=== PATIENT | female | born 1930 | race Caucasian/White ===

== ENCOUNTER 2016-10-03 13:07 | Inpatient (IN) | payer OTHER ==
[2016-10-02 11:07] VITALS: BMI 19.1
[2016-10-03] MEDS ORDERED: HEPARIN NA (PORCINE) 5,000 UNITS/ML 1ML VIAL ONE ×2 (14:52→17:09)
[2016-10-03] MEDS ORDERED: MIDAZOLAM HCL 2 MG/2 ML SINGLE DOSE VIAL ONE ×2 (15:38)
[2016-10-03] MEDS ORDERED: CLINDAMYCIN PHOSPHATE 600 MG/4 ML VIAL ONE ×2 (16:24→16:27)
[2016-10-03] MEDS ORDERED: ceFAZolin SODIUM 1 GM VIAL ONE (16:25)
[2016-10-03] MEDS ORDERED: CLINDAMYCIN 600 MG PREMIX BAG IVPB ONE (16:28)
[2016-10-03] MEDS ORDERED: LIDOCAINE HCL 1%, 10 MG/ML (20ML VIAL) IJ ONE (16:49)
[2016-10-03] MEDS ORDERED: LIDOCAINE HCL 1%, 10 MG/ML (20ML VIAL) ONE (16:52)
[2016-10-03] MEDS ORDERED: PROPOFOL 20 ML ONE ×2 (17:22→17:43)
[2016-10-03] MEDS ORDERED: PROTAMINE SULFATE 50 MG/5 ML VIAL ONE (18:33)
[2016-10-03] MEDS ORDERED: SODIUM CHLORIDE 0.9% P/F 10 ML VIAL IJ ONE (18:35)
[2016-10-03] MEDS ORDERED: ONDANSETRON 4 MG/2 ML VIAL IVPUSH PRN (18:56)
[2016-10-03] MEDS ORDERED: ALPRAZolam 0.25 MG TABLET PO PRN (18:57)
[2016-10-03] MEDS ORDERED: CLINDAMYCIN IVPB 300 MG in DEXTROSE 5%-WATER - 48 ML IVPB ONE (19:03)
--- NOTE | 2016-10-03 19:03 | OP ---
Operative Note - Note: Operative Date: 10/03/16 Pre-Operative Diagnosis: Abdominal aortic aneurysm Operation: Endovascular repair abdominal aortic aneurysm, percutaneous approach. Bilateral iliac angioplasty Findings: Infrarenal AAA with proximal neck angulation. Stenoses of both common iliac arteries. Implants: Endologic stent graft with proximal cuff 28 mm Post-Operative Diagnosis: Same as Pre-op Surgeon: Huan Loredo Diesel Scoop Operator: Best Shaver Anesthesiologist/[employer]: Santiago Guajardo Anesthesia: Fractional Estimated Blood Loss (mls): 50
--- NOTE | 2016-10-03 19:09 | OP ---
Operative Note - Note: Operative Date: 10/03/16 Pre-Operative Diagnosis: Infrarenal abdominal aortic aneurysm Operation: Percutaneous EVAR Implants: Endofix AFX Post-Operative Diagnosis: Same as Pre-op Surgeon: Huan Loredo Asset Analyst: Best Shaver Anesthesiologist/QUALITY SUPERVISOR: Santiago Guajardo Anesthesia: MAC Estimated Blood Loss (mls): 50 Drains, Volume Out (mls): 150 (clear urine) Fluid Volume Replaced (mls): 1,000 Operative Report Dictated: Yes
--- NOTE | 2016-10-03 19:12 | SURG ---
Surgery Prosthetic Aides Teacher Note Prosthetic Aides Teacher: Best Shaver PA-C Date of Service: 10/03/16 Diagnosis: Infrarenal abdominal aortic aneurysm Procedure: Endovascular repair abdominal aortic aneurysm, percutaneous approach. Bilateral iliac angioplasty I was present for the entirety of the operative procedure. For further detail, please refer to operative report. Visit type - Case Type Case Type: Scheduled Admission - New patient This patient is new to me today: Yes Date on this admission: 10/03/16
[2016-10-03] MEDS ORDERED: ACETAMINOPHEN 325 MG TABLET (FP) PO PRN ×2 (19:52→19:59)
[2016-10-03] MEDS ORDERED: ONDANSETRON 4 MG/2 ML VIAL ONE (19:55)
--- NOTE | 2016-10-03 20:12 | PN ---
Progress Note (short form) - Note Progress Note: Patient seen and examined. Chart reviewed. 86 year old female post-op endovascular AAA repair. Seen in recovery room. Alert, responsive and appropriate. Some local post-operative pain as well as recurrence of left sided low back discomfort Nausea noted as well. Will order acetaminophen as needed for pain due to h/o codeine intolerance. No new chest discomfort, palpitations , PARISI or angina. Case discussed with nursing staff and Dr Loredo. Will be transferred to ICU for further observation and therapy. 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
[2016-10-03] MEDS: LACTATED RINGERS SOLUTION 1,000 ML IV SCH (20:33)
--- NOTE | 2016-10-03 20:53 | CONSULT ---
Consult Consult Specialty:: Pulm/CC - History of Present Illness History of Present Illness: Pt is an 86yr old woman with PMHx of COPD, lung ca (s/p lobectomy), HLD, CAD, hypothyroidism osteoarthritis and AAA. Pt now s/p endovascular repair of AAA with bilateral iliac angioplasty. Pt with endologic stent graft. Upon assessment in the ICU pt is alert, conversive with friends/family at bedside, denies chest pain, sob/headache/v, endorses mild nausea. 152/58, HR 58 sinus on tele, 100% on NC RR 12 afebrile. - History Source History Provided By: Patient, Medical Record - Alcohol/Substance Use Hx Alcohol Use: No - Smoking History Smoking history: Former smoker Have you smoked in the past 12 months: No If you are a former smoker, when did you quit?: 2007 Home Medications - Allergies Allergies/Adverse Reactions: Allergies Allergy/AdvReac Type Severity Reaction Status Date / Time codeine Allergy Severe Vomiting Verified 10/03/16 13:57 Penicillins Allergy Severe Vomiting Verified 10/03/16 13:57 Quinolones Allergy Severe Vomiting Verified 10/03/16 13:57 - Home Medications Home Medications: Ambulatory Orders Alprazolam [Xanax] 0.25 mg PO Q6H PRN 10/02/16 Atorvastatin Ca [Lipitor] 10 mg PO DAILY 10/02/16 Cholecalciferol (Vitamin D3) [Vitamin D3] 1,000 unit PO DAILY 10/02/16 Cranberry Fruit Extract [Cranberry] 125 mg PO DAILY 10/02/16 Cyanocobalamin (Vitamin B-12) [Vitamin B12] 1,000 mcg PO DAILY 10/02/16 Levothyroxine Sodium [Synthroid] 75 mcg PO DAILY 10/02/16 [place]-3/Dha/Epa/Fish Oil [Fish Oil 1,000 mg Softgel] 1,000 mg PO DAILY 10/02/16 Review of Systems - Review of Systems Constitutional: reports: No Symptoms Eyes: reports: No Symptoms HENT: reports: No Symptoms Cardiovascular: denies: Chest Pain, Shortness of Breath Respiratory: denies: SOB Gastrointestinal: denies: Constipation, Diarrhea, Nausea, Vomiting Genitourinary: denies: Dysuria Physical Exam Vital Signs: Vital Signs Period Temp Pulse Resp BP Sys/Weber Pulse Ox Last 24 Hr 97.3 F-98.6 F 64-78 06-30 14-152/55-90 96-100 Intake & Output 09/30/16 10/01/16 10/02/16 10/03/16 23:59 23:59 23:59 23:59 Intake Total 1300 Output Total 120 Balance 1180 Weight 108 lb Constitutional: Yes: Well Nourished, No Distress, Calm Eyes: Yes: WNL HENT: Yes: WNL Neck: Yes: WNL Cardiovascular: Yes: S1, S2, Other (sinus on tele, upper 50s-low 60s) Respiratory: Yes: On Nasal O2, Other (no adventitious breath sounds appreciated) . No: Rhonchi, SOB, Tachypnea, Wheezes Gastrointestinal: Yes: Normal Bowel Sounds, Tenderness (slight around incision site) ...Rectal Exam: Yes: Deferred Renal/: Yes: Rubi Present (yellow output) Musculoskeletal: Yes: WNL Extremities: Yes: WNL Edema: No Peripheral Pulses WNL: Yes (+2 bilateral pedal pulses) Integumentary: Yes: WNL Wound/Incision: Yes: Dressing Dry and Intact, Reddened (slight, bilateral) Neurological: Yes: WNL Psychiatric: Yes: WNL Assessment/Plan Pt is an 86yr old woman with PMHx of COPD, lung ca (s/p lobectomy), HLD, CAD, hypothyroidism osteoarthritis and AAA. Pt now s/p endovascular repair of AAA with bilateral iliac angioplasty. Pt with endologic stent graft. In the ICU for management of recovery. Pulm: -O2 prn for sat >94% -Nebulizers prn -Incentive spirometer ID: -Cultures -Continue Clindamycin per surgery Surgery: -Dr Loredo following -IVF, surgical care per surgical team Cardiac -f/u enzymes -statin Neuro -Pain management -Continue home Xanax prn Endo -Continue home synthroid Renal -IVF per surgery -Replete electrolytes prn Prophylactic -DVT -Zofran prn
[2016-10-03] MEDS ORDERED: ALBUTEROL SO4 0.083% IH SOL 2.5 MG/3 ML VIAL.NEB. NEB PRN (20:56)
[2016-10-03] MEDS ORDERED: HEPARIN NA (PORCINE) 5,000 UNITS/ML 1ML VIAL SQ SCH (22:00)
[2016-10-03] MEDS ORDERED: ATORVASTATIN CA 10 MG TABLET (FP) PO SCH (22:00)
[2016-10-04] MEDS ORDERED: CLINDAMYCIN IVPB 300 MG in DEXTROSE 5%-WATER - 48 ML IVPB ONE (00:30)
[2016-10-04] MEDS: HEPARIN NA (PORCINE) 5,000 UNITS/ML 1ML VIAL SQ SCH ×3 (06:20→21:14)
[2016-10-04 06:53] LABS: BASOPHIL 0.5 % (0-2.0); MCH 30.7 pg (25.7-33.7); MCHC 34.2 g/dl (32.0-36.0); MEAN CELL VOLUME 89.8 fl (80-96); MEAN PLT VOLUME 7.8 fl (7.5-11.1); NEUTROPHILS 65.2 % (42.8-82.8); PLATELET COUNT 192 K/MM3 (134-434); RDW 13.4 % (11.6-15.6)
[2016-10-04] MEDS ORDERED: LEVOTHYROXINE NA 75 MCG TABLET (FP) PO SCH (07:00)
[2016-10-04 07:17] LABS: INR 1.04 (0.82-1.09); PROTHROMBIN TIME (PATIENT) 11.4 SEC (9.98-11.88)
[2016-10-04 07:19] LABS: ACTIVATED PTT 28.4 SECONDS (26.9-34.4)
[2016-10-04 07:33] LABS: ALBUMIN 2.8 g/dl (3.4-5.0); BILIRUBIN,TOTAL 0.8 mg/dL (0.2-1.0); CALCIUM 8.6 mg/dL (8.5-10.1); CREATININE 1.1 mg/dL (0.55-1.02); TOT PROT 5.6 g/dl (6.4-8.2)
[2016-10-04 07:40] LABS: TROPONIN I < 0.02 ng/ml (0.00-0.05)
--- NOTE | 2016-10-04 08:53 | PN ---
Progress Note (short form) - Note Progress Note: Patient seen and examined. Chart reviewed. 86 year old female post-op endovascular AAA repair. Seen this AM in ICU, sitting up in bed, alert, responsive and appropriate. No new post-operative pain and no mention of left sided low back discomfort. Nausea resolved. No new chest discomfort, palpitations, PARISI or angina. Case discussed with nursing staff and Dr Loredo. Selected Entries 10/04/16 10/04/16 07:54 08:00 Temperature 97.1 F L Pulse Rate 62 Respiratory 22 Rate Blood Pressure 126/52 Weight 106 lb 8 oz Laboratory Tests 10/04/16 10/04/16 10/04/16 05:15 05:15 05:15 WBC 6.0 Hgb 10.7 Hct 31.4 L Plt Count 192 INR 1.04 PTT (Actin FS) 28.4 Sodium 142 Potassium 4.3 Chloride 103 Carbon Dioxide 26 BUN 18 Creatinine 1.1 H Random Glucose 60 L Calcium 8.6 Phosphorus 4.0 Magnesium 2.0 Total Bilirubin 0.8 AST 23 ALT 19 Alkaline Phosphatase 76 Creatine Kinase Troponin I Total Protein 5.6 L Albumin 2.8 L 10/04/16 05:15 WBC Hgb Hct Plt Count INR PTT (Actin FS) Sodium Potassium Chloride Carbon Dioxide BUN Creatinine Random Glucose Calcium Phosphorus Magnesium Total Bilirubin AST ALT Alkaline Phosphatase Creatine Kinase 73 Troponin I < 0.02 Total Protein Albumin Chest Clear Cor RRR Abd Soft Incision sites bandaged, appear clean and dry Ext No edema SCDs and stockings is place Toes warm. 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
--- NOTE | 2016-10-04 09:09 | PN ---
Progress Note (short form) - Note Progress Note: POD 1 No c/o Groins clean and dry Feet warm, palp DP Stable course OOB To floor
[2016-10-04] MEDS: LACTATED RINGERS SOLUTION 1,000 ML IV SCH (09:48)
[2016-10-04] MEDS ORDERED: CYANOCOBALAMIN 1,000 MCG TABLET (FP) PO SCH (10:00)
[2016-10-04] MEDS ORDERED: CHOLECALCIFEROL (VITAMIN D3) 1,000 UNIT TABLET (FP) PO SCH (10:00)
[2016-10-04] MEDS ORDERED: ATORVASTATIN CA 10 MG TABLET (FP) PO SCH (10:00)
--- NOTE | 2016-10-04 11:23 | PN ---
Teaching Attending Note Name of Resident: Rashad Carlton ATTENDING PHYSICIAN STATEMENT I saw and evaluated the patient. I reviewed the resident's note and discussed the case with the resident. I agree with the resident's findings and plan as documented. SUBJECTIVE: Patient seen and examined in the ICU. Awake and alert. Minimal discomfort in the groin. No CP or SOB. Intake & Output 10/01/16 10/02/16 10/03/16 10/04/16 23:59 23:59 23:59 23:59 Intake Total 1300 850 Output Total 220 380 Balance 1080 470 Weight 108 lb 106 lb 8 oz Last Vital Signs Temp Pulse Resp BP Pulse Ox 97.2 F L 65 12 119/56 99 10/04/16 10:00 10/04/16 10:00 10/04/16 10:00 10/04/16 10:00 10/04/16 08:00 Active Medications Acetaminophen (Tylenol -) 650 mg PO Q4H PRN PRN Reason: PAIN Albuterol Sulfate (Ventolin 0.083% Nebulizer Soln -) 1 amp NEB Q4H PRN PRN Reason: SHORT OF BREATH/WHEEZING Alprazolam (Xanax -) 0.25 mg PO Q6H PRN PRN Reason: ANXIETY Stop: 10/04/16 18:56 Atorvastatin Calcium (Lipitor -) 10 mg PO DAILY [facility] Last Admin: 10/04/16 09:46 Dose: Not Given Cholecalciferol (Vitamin D3 -) 1,000 unit PO DAILY [facility] Last Admin: 10/04/16 09:46 Dose: 1,000 unit Cyanocobalamin (Vitamin B12 -) 1,000 mcg PO DAILY [facility] Last Admin: 10/04/16 09:46 Dose: 1,000 mcg Heparin Sodium (Porcine) (Heparin -) 5,000 unit SQ TID [facility] Last Admin: 10/04/16 06:20 Dose: 5,000 unit Lactated Ringer's (Lactated Ringers Solution) 1,000 mls @ 75 mls/hr IV ASDIR [facility] Last Admin: 10/04/16 09:48 Dose: 75 mls/hr Levothyroxine Sodium (Synthroid -) 75 mcg PO DAILY@0700 [facility] Last Admin: 10/04/16 06:20 Dose: 75 mcg Constitutional: Yes: Awake and alert, No Distress Eyes: Yes: WNL HENT: Yes: WNL Neck: Yes: WNL Cardiovascular: Yes: S1, S2 Respiratory: Yes: On Nasal O2, Clear Gastrointestinal: Yes: Normal Bowel Sounds ...Rectal Exam: Yes: Deferred Renal/: Yes: Rubi Present Musculoskeletal: Yes: WNL Extremities: Yes: WNL Edema: No Peripheral Pulses WNL: Yes (+2 bilateral pedal pulses) Integumentary: Yes: WNL Wound/Incision: Yes: Dressing Dry and Intact, Reddened (slight, bilateral) Neurological: Yes: WNL Psychiatric: Yes: WNL Assessment/Plan S/P Endovascular repair of AAA with bilateral iliac angioplasty COPD Lung CA (s/p lobectomy) HPL CAD Hypothyroidism Osteoarthritis PLAN: Pain control Incentive Spirometry O2 as needed BD TX PRN VTE prophylaxis PO as tolerated OOB to chair Floor Dr Armendariz
--- NOTE | 2016-10-04 11:46 | PN ---
Progress Note, Physician History of Present Illness: s/p endovascular repair of abdominal aortic aneurysm Doing well no complaints - Current Medication List Current Medications: Active Medications Acetaminophen (Tylenol -) 650 mg PO Q4H PRN PRN Reason: PAIN Albuterol Sulfate (Ventolin 0.083% Nebulizer Soln -) 1 amp NEB Q4H PRN PRN Reason: SHORT OF BREATH/WHEEZING Alprazolam (Xanax -) 0.25 mg PO Q6H PRN PRN Reason: ANXIETY Stop: 10/04/16 18:56 Atorvastatin Calcium (Lipitor -) 10 mg PO DAILY [facility] Last Admin: 10/04/16 09:46 Dose: Not Given Cholecalciferol (Vitamin D3 -) 1,000 unit PO DAILY [facility] Last Admin: 10/04/16 09:46 Dose: 1,000 unit Cyanocobalamin (Vitamin B12 -) 1,000 mcg PO DAILY [facility] Last Admin: 10/04/16 09:46 Dose: 1,000 mcg Heparin Sodium (Porcine) (Heparin -) 5,000 unit SQ TID [facility] Last Admin: 10/04/16 06:20 Dose: 5,000 unit Lactated Ringer's (Lactated Ringers Solution) 1,000 mls @ 75 mls/hr IV ASDIR [facility] Last Admin: 10/04/16 09:48 Dose: 75 mls/hr Levothyroxine Sodium (Synthroid -) 75 mcg PO DAILY@0700 [facility] Last Admin: 10/04/16 06:20 Dose: 75 mcg - Objective Vital Signs: Vital Signs Temperature 97.2 F L 10/04/16 10:00 Pulse Rate 65 10/04/16 10:00 Respiratory Rate 12 10/04/16 10:00 Blood Pressure 119/56 10/04/16 10:00 O2 Sat by Pulse Oximetry (%) 99 10/04/16 08:00 Constitutional: Yes: Well Nourished, No Distress Eyes: Yes: EOM Intact HENT: Yes: Atraumatic Neck: Yes: Supple Cardiovascular: Yes: Regular Rate and Rhythm Respiratory: Yes: CTA Bilaterally Gastrointestinal: Yes: Soft. No: Tenderness Extremities: Yes: Other (bilateral groin incisions clean dry and intact) ...Motor Strength: WNL Labs: CBC, BMP 10/04/16 05:15 10/04/16 05:15 INR, PTT INR 1.04 (0.82-1.09) 10/04/16 05:15 Assessment/Plan Pt is an 86yr old woman with PMHx of COPD, lung ca (s/p lobectomy), HLD, CAD, hypothyroidism osteoarthritis and AAA. Pt now s/p endovascular repair of AAA with bilateral iliac angioplasty. Pt with endologic stent graft. In the ICU for management of recovery. COPD/history of Lung Ca O2 prn for sat >94% Nebulizers prn Incentive spirometer Abdominal aortic aneurysm s/p EVAAR Stable surgery following transfer to floor D/C scanlon Hyperlipidemia continue statin neuro: pain management xanax PRN hypothyroidism Continue home synthroid Prophylactic DVT Zofran prn out of bed CLD advance as tolerated Transfer to floor
--- NOTE | 2016-10-04 14:46 | PN ---
Progress Note (short form) - Note Progress Note: Anesthesia postop note 86 y/o F s/p MAC anesthesia for endovascular AAA repair POD#1, in ICU, feeling good, aaox3, vss, no complaints. No anesthesia complications.
[2016-10-04] MEDS ORDERED: ALBUTEROL SO4 0.083% IH SOL 2.5 MG/3 ML VIAL.NEB. NEB PRN (16:21)
[2016-10-04] MEDS ORDERED: ALPRAZolam 0.25 MG TABLET PO PRN (16:21)
[2016-10-04] MEDS ORDERED: ACETAMINOPHEN 325 MG TABLET (FP) PO PRN (16:21)
[2016-10-04] MEDS ORDERED: LACTATED RINGERS SOLUTION 1,000 ML IV SCH (16:21)
[2016-10-05 05:26] LABS: MCH 30.7 pg (25.7-33.7); MEAN CELL VOLUME 90.5 fl (80-96); MEAN PLT VOLUME 7.9 fl (7.5-11.1); PLATELET COUNT 192 K/MM3 (134-434); RDW 13.2 % (11.6-15.6); WHITE BLOOD COUNT 7.2 K/mm3 (4.0-10.0)
[2016-10-05 06:01] LABS: CALCIUM 8.4 mg/dL (8.5-10.1); CREATININE 1.3 mg/dL (0.55-1.02)
[2016-10-05] MEDS: HEPARIN NA (PORCINE) 5,000 UNITS/ML 1ML VIAL SQ SCH (06:27)
[2016-10-05] MEDS ORDERED: ATORVASTATIN CA 10 MG TABLET (FP) PO SCH (07:00)
[2016-10-05] MEDS ORDERED: LEVOTHYROXINE NA 75 MCG TABLET (FP) PO SCH (07:00)
[2016-10-05 08:07] VITALS: PULSE 73
--- NOTE | 2016-10-05 09:02 | PN ---
Progress Note (short form) - Note Progress Note: POD 2 C/o chronic back pain VSS Abd soft groins clean and dry, no swelling Stable Home today
[2016-10-05] MEDS ORDERED: PT OWN MED DRAWER 7, Y5N ONE (09:33)
--- NOTE | 2016-10-05 09:48 | DS ---
Physical Examination Vital Signs: Vital Signs Temperature 97.1 F L 10/05/16 08:00 Pulse Rate 73 10/05/16 08:00 Respiratory Rate 22 10/05/16 08:00 Blood Pressure 141/58 10/05/16 08:00 O2 Sat by Pulse Oximetry (%) 94 L 10/05/16 08:00 Constitutional: Yes: Well Nourished Eyes: Yes: Conjunctiva Clear Cardiovascular: Yes: Regular Rate and Rhythm Respiratory: Yes: CTA Bilaterally Gastrointestinal: Yes: Normal Bowel Sounds, Soft Edema: No Wound/Incision: Yes: Clean/Dry Labs: CBC, BMP 10/05/16 05:00 10/05/16 05:00 Discharge Summary Reason For Visit: ABDOMINAL AORTIC ANEURYSM See daily notes and problem list Procedures: Principal: Endovascular AAA repair as per Dr Loredo Hospital Course: See daily notes Condition: Good - Instructions Diet, Activity, Other Instructions: Dr Loredo's Discharge Instructions Dear ROBIN JAY, Post Operative Instructions Physical activity Resume your normal everyday activity as tolerated no heavy lifting or exercise until seen by your surgeon. You may walk unlimited elkin of and climb stairs. You may resume driving the car when you feel safe and comfortable behind the wheel. Diet There are no dietary restrictions. Eat healthy, high-fiber foods. Drink 6 to 8 glasses of liquid each day. This will assist in keeping your bowels are regular. Pain management You may take Tylenol or acetaminophen or Ibuprofen (for example, Motrin, Advil etc.) Any pain prescription medication ordered should be taken as prescribed for moderate to severe pain. Call Dr. Loredo for any of the following: Severe pain not relieved by medication Fever of 101 or higher Excessive bleeding or drainage on dressing Inability to urinate Call the office for an appointment in seven days. Follow up with Dr Ashley Disposition: HOME - Home Medications Comprehensive Discharge Medication List: Ambulatory Orders Alprazolam [Xanax] 0.25 mg PO Q6H PRN 10/02/16 Atorvastatin Ca [Lipitor] 10 mg PO DAILY 10/02/16 Cholecalciferol (Vitamin D3) [Vitamin D3] 1,000 unit PO DAILY 10/02/16 Cranberry Fruit Extract [Cranberry] 125 mg PO DAILY 10/02/16 Cyanocobalamin (Vitamin B-12) [Vitamin B12] 1,000 mcg PO DAILY 10/02/16 [place]-3/Dha/Epa/Fish Oil [Fish Oil 1,000 mg Softgel] 1,000 mg PO DAILY 10/02/16 Acetaminophen [Tylenol .Regular Strength -] 650 mg PO Q4H PRN #0 tablet Levothyroxine [Synthroid -] 75 mcg PO DAILY@0700 tablet 10/05/16
[2016-10-05] MEDS ORDERED: CYANOCOBALAMIN 1,000 MCG TABLET (FP) PO SCH (10:00)
[2016-10-05] MEDS ORDERED: CHOLECALCIFEROL (VITAMIN D3) 1,000 UNIT TABLET (FP) PO SCH (10:00)
[2016-10-05 10:16] VITALS: BP 135/58; TEMP 97
--- NOTE | 2016-10-05 10:38 | PN ---
Teaching Attending Note Name of Resident: Rashad Carlton ATTENDING PHYSICIAN STATEMENT I saw and evaluated the patient. I reviewed the resident's note and discussed the case with the resident. I agree with the resident's findings and plan as documented. SUBJECTIVE: Patient seen and examined in the ICU. Awake and alert. Minimal discomfort in the groin. No CP or SOB. Intake & Output 10/02/16 10/03/16 10/04/16 10/05/16 23:59 23:59 23:59 23:59 Intake Total 1300 2315 670 Output Total 220 1380 550 Balance 1080 935 120 Weight 108 lb 106 lb 8 oz 106 lb 9.6 oz Last Vital Signs Temp Pulse Resp BP Pulse Ox 97.0 F L 73 22 135/58 94 L 10/05/16 10:00 10/05/16 10:00 10/05/16 10:00 10/05/16 10:00 10/05/16 08:00 Active Medications Acetaminophen (Tylenol -) 650 mg PO Q4H PRN PRN Reason: PAIN Albuterol Sulfate (Ventolin 0.083% Nebulizer Soln -) 1 amp NEB Q4H PRN PRN Reason: SHORT OF BREATH/WHEEZING Alprazolam (Xanax -) 0.25 mg PO Q6H PRN PRN Reason: ANXIETY Atorvastatin Calcium (Lipitor -) 10 mg PO DAILY@0700 [facility] Last Admin: 10/05/16 06:38 Dose: 10 mg Cholecalciferol (Vitamin D3 -) 1,000 unit PO DAILY [facility] Last Admin: 10/05/16 09:34 Dose: 1,000 unit Cyanocobalamin (Vitamin B12 -) 1,000 mcg PO DAILY [facility] Last Admin: 10/05/16 09:34 Dose: 1,000 mcg Heparin Sodium (Porcine) (Heparin -) 5,000 unit SQ TID [facility] Last Admin: 10/05/16 06:27 Dose: 5,000 unit Levothyroxine Sodium (Synthroid -) 75 mcg PO DAILY@0700 [facility] Last Admin: 10/05/16 06:29 Dose: 75 mcg Constitutional: Yes: Awake and alert, No Distress Eyes: Yes: WNL HENT: Yes: WNL Neck: Yes: WNL Cardiovascular: Yes: S1, S2 Respiratory: Yes: On Nasal O2, Clear Gastrointestinal: Yes: Normal Bowel Sounds ...Rectal Exam: Yes: Deferred Renal/: Yes: Rubi Present Musculoskeletal: Yes: WNL Extremities: Yes: WNL Edema: No Peripheral Pulses WNL: Yes (+2 bilateral pedal pulses) Integumentary: Yes: WNL Wound/Incision: Yes: Dressing Dry and Intact Neurological: Yes: WNL Psychiatric: Yes: WNL Laboratory Results - last 24 hr 10/05/16 10/05/16 05:00 05:00 WBC 7.2 RBC 3.33 L Hgb 10.2 L Hct 30.1 L MCV 90.5 MCHC 34.0 RDW 13.2 Plt Count 192 MPV 7.9 Sodium 142 Potassium 4.2 Chloride 105 Carbon Dioxide 30 Anion Gap 7 L BUN 20 H Creatinine 1.3 H Random Glucose 109 H D Calcium 8.4 L Assessment/Plan S/P Endovascular repair of AAA with bilateral iliac angioplasty COPD Lung CA (s/p lobectomy) HPL CAD Hypothyroidism Osteoarthritis PLAN: Noted 0.2 increase in creatinine. Otherwise stable. Pain control Incentive Spirometry O2 as needed BD TX PRN VTE prophylaxis PO as tolerated OOB to chair D/C planning Dr Armendariz
--- NOTE | 2016-10-05 11:00 | PN ---
Progress Note, Physician History of Present Illness: patient seen and examined at bedside in the ICU this morning s/p endovascular repair of abdominal aortic aneurysm POD 2 Doing well no complaints ready for discharge - Objective Vital Signs: Vital Signs Temperature 97.0 F L 10/05/16 10:00 Pulse Rate 73 10/05/16 10:00 Respiratory Rate 22 10/05/16 10:00 Blood Pressure 135/58 10/05/16 10:00 O2 Sat by Pulse Oximetry (%) 94 L 10/05/16 08:00 Constitutional: Yes: Well Nourished, No Distress Eyes: Yes: EOM Intact HENT: Yes: Atraumatic Neck: Yes: Supple Cardiovascular: Yes: Regular Rate and Rhythm Respiratory: Yes: CTA Bilaterally Gastrointestinal: Yes: Soft. No: Tenderness Extremities: Yes: Other (bilateral groin incisions clean dry and intact) ...Motor Strength: WNL Labs: CBC, BMP 10/05/16 05:00 10/05/16 05:00 INR, PTT INR 1.04 (0.82-1.09) 10/04/16 05:15 Assessment/Plan Pt is an 86yr old woman with PMHx of COPD, lung ca (s/p lobectomy), HLD, CAD, hypothyroidism osteoarthritis and AAA. Pt now s/p endovascular repair of AAA with bilateral iliac angioplasty. Pt with endologic stent graft. In the ICU for management of recovery. COPD/history of Lung Ca O2 prn for sat >94% Nebulizers prn Incentive spirometer Abdominal aortic aneurysm s/p EVAAR Stable surgery following Hyperlipidemia continue statin neuro: pain management xanax PRN hypothyroidism Continue home synthroid Prophylactic DVT Zofran prn out of bed regular diet Discharge to home patient advised to follow up with PMD or vascular surgery for labs in 1 week to assess renal function. advised to stay hydrated
--- NOTE | 2016-10-05 14:09 | OP ---
DATE OF OPERATION: 10/03/2016 SURGEON: Huan Loredo MD LMFT: ROXANNE Bravo PROCEDURE: Endovascular repair of abdominal aortic aneurysm with paracutaneous approach, bilateral iliac angioplasty. PREOPERATIVE DIAGNOSIS: Infrarenal abdominal aortic aneurysm, stenosis of both common iliac arteries. POSTOPERATIVE DIAGNOSIS: Infrarenal abdominal aortic aneurysm, stenosis of both common iliac arteries. ANESTHESIA: Fractional. ANESTHESIOLOGIST: Bennett OPERATIVE FINDINGS: There was an infrarenal abdominal aortic aneurysm with proximal neck angulation. The common iliac arteries were narrowed but patent. OPERATIVE PROCEDURE: Following routine patient identification, intravenous sedation was established. The abdomen, both groins, and thighs were prepped with ChloraPrep. Using real time duplex imaging, the right common femoral artery was identified. There was calcified plaque along the mccrary of the artery. A site for cannulation proximal to the bifurcation was chosen. Then 1% Xylocaine was infiltrated in the skin overlying the artery and then the artery was cannulated with a micropuncture needle using ultrasound guidance. A micropuncture wire was advanced proximally, and the needle was exchanged for a 5-Bangladeshi catheter. A Gramco wire was advanced proximally under fluoroscopic guidance into the abdominal aorta. A 6-Bangladeshi sheath was then exchanged over the wire into the femoral artery. Two Proglide Perclose devices were then placed at 2 o'clock and 10 o'clock in the artery but not tightened. They were secured with clamps to the drapes. An 8-Bangladeshi sheath was placed into the artery. A Berenstein catheter was then advanced over the wire into the abdominal aorta and an angle tip Glidewire used to advance into the suprarenal aorta. The catheter was advanced up over the wire, and the wire was exchanged for a Lunderquist whose tip was positioned at the aortic arch. The patient was systemically heparinized. The left femoral artery was cannulated under ultrasound guidance in a similar fashion. A 7-Bangladeshi sheath was placed. An angled wire was advanced proximally into the abdominal aorta and then a snare catheter was advanced over the wire and the snare placed to position at the aortic bifurcation. Tract around the wire in the right groin was then dilated to a 14 Bangladeshi and then the introducer for the Endologix graft passed over the wire and advanced into the abdominal aorta without difficulty. The AFX bifurcated stent graft was then prepped and the Contra wire advanced up the sheath. The wire was grabbed with a snare and pulled down through the left femoral sheath while the stent graft main body was advanced proximally into the sheath and then into the abdominal aorta. The graft was then deployed and pulled down on both sides so that the bifurcation would sit over the aortic bifurcation snugly. The left limb was then deployed in the usual fashion. A wire was then passed up the left femoral sheath into the suprarenal aorta. A Marker pigtail catheter was advanced over the wire to perform angiography to brayden the renal arteries. The Moore proximal endograft segment was then passed over the wire to the right sheath, and after magnified imaging of the renal arteries, it was deployed at the level of the renal arteries and into the main body of the stent graft. The iliac arteries were then balloon dilated with 8-mm balloons, and completion angiography revealed accurate placement of the stent graft with flow to both renal arteries and no evidence of endoleak. The left femoral sheath was removed and a Perclose device used to seal the arteriotomy without difficulty. The right femoral sheath was removed and the previously placed Perclose sutures tightened. One of the sutures was dislodged, so only 1 Perclose was used. Pressure was applied, and the patient received some protamine. There was no evidence of abnormal bleeding. Dermabond glue was applied to the skin as dressing, and then patient was taken to the recovery room in stable condition. HUAN LOREDO M.D. [id number]
== END 2016-10-05 10:30 | disposition home or self-care (01) | DRG 269 ==
LOC: JSAMEDAYSX 13:07 → JICU 21:12
PROVIDERS: ADMIT Surgery; ATTEND Surgery
PROC: B40 Imaging, Lower Arteries, Plain Radiography (ICD-10-PCS; 2016-10-03)
PROC: 04V03DZ Restriction of Abdominal Aorta with Intraluminal Device, Percutaneous Approach (ICD-10-PCS; principal; 2016-10-03 14:30)
DX: I71.4 Abdominal aortic aneurysm, without rupture (principal); I70.298 Other atherosclerosis of native arteries of extremities, other extremity; J44.9 Chronic obstructive pulmonary disease, unspecified; E78.5 Hyperlipidemia, unspecified; I25.10 Atherosclerotic heart disease of native coronary artery without angina pectoris; E03.9 Hypothyroidism, unspecified; M54.40 Lumbago with sciatica, unspecified side; M19.90 Unspecified osteoarthritis, unspecified site; Z87.891 Personal history of nicotine dependence; Z85.118 Personal history of other malignant neoplasm of bronchus and lung
CPT/HCPCS: 36415; 76001-TC; 80048; 80053; 82550; 83735; 84100; 84484; 85025; 85027; 85610; 85730; 86850; 86900; 86901; 87040; 87086; 87254; 87804; 94010; 94760; J1644

== ENCOUNTER 2020-03-19 14:22 | Emergency (ER) | payer OTHER ==
[2020-03-19 14:47] VITALS: TEMP 98.1; BMI 16.9
[2020-03-19 15:16] LABS: BASO % 0.9 % (0-2.0); EOS % 3.3 % (0-4.5); HEMATOCRIT 28.5 % (32.4-45.2); HEMOGLOBIN 9.5 GM/dl (10.7-15.3); LYMPH % 23.1 % (8-40); MCHC 33.5 g/dl (32.0-36.0); MEAN CELL VOLUME 74.5 fl (80-96); MEAN PLT VOLUME 6.8 fl (7.5-11.1); MONO % 9.2 % (3.8-10.2); NEUT % 63.5 % (42.8-82.8); PLATELET COUNT 404 K/MM3 (134-434); RBC 3.82 M/mm3 (3.60-5.2); RDW 15.2 % (11.6-15.6); WHITE BLOOD COUNT 8.4 K/mm3 (4.0-10.8)
[2020-03-19 15:24] LABS: ALBUMIN 2.7 g/dl (3.4-5.0); BILIRUBIN,TOTAL 0.5 mg/dl (0.2-1); CALCIUM 9.1 mg/dl (8.5-10); CREATININE 1.6 mg/dl (0.55-1.3); POTASSIUM 3.7 mmol/L (3.5-5.1); TOT PROT 6.5 g/dl (6.4-8.2)
[2020-03-19 15:38] VITALS: BP 140/60; PULSE 68
--- NOTE | 2020-03-19 15:59 | PDOC ---
Documentation entered by Kassidy Gay SCRIBE, acting as scribe for Remy Palafox MD. Remy Palafox MD: This documentation has been prepared by the hannahibeAnne Maria, SCRIBE, under my direction and personally reviewed by me in its entirety. I confirm that the documentation accurately reflects all work, treatment, procedures, and medical decision making performed by me. History of Present Illness - General Chief Complaint: Blood Pressure Problem Stated Complaint: LOW BLOOD PRESSURE History Source: Patient, Family Exam Limitations: No Limitations - History of Present Illness Initial Comments: 03/19/20 14:53 The patient is a 89 year old female with a significant past medical history of COPD, lung ca (s/p lobectomy), HLD, CAD, hypothyroidism osteoarthritis and AAA s/p endovascular with bilateral iliac angioplasty who presents to the emergency department with her daughter at bedside for further evaluation of low blood pressure. As per the patient's daughter, she reports taking her moms blood pressure this morning and states it was 84/50, with acute new onset of shortness of breath. Patients daughter also reports on 03/16/2020, her mom had an episode of lightheadedness. Patient currently presents to the emergency department asymptomatic and voices no complaints. Patient has been compliant with all her medications. Patient denies recent fevers or chills. She denies recent nausea, vomiting, diarrhea or constipation. She denies any chest pain, swelling or pain in her legs. Allergies: Sulfur, Codeine, Penicillins, Quinolones. Social history: Former smoker, quit smoking over 10 years ago. Denies ETOH use, quit over 30 years ago, and recreational drug use. Primary Care Physician: Dr. Ashley. Past History - Medical History Allergies/Adverse Reactions: Allergies Allergy/AdvReac Type Severity Reaction Status Date / Time codeine Allergy Severe Vomiting Verified 10/03/16 13:57 Penicillins Allergy Severe Vomiting Verified 10/03/16 13:57 Quinolones Allergy Severe Vomiting Verified 10/03/16 13:57 Sulfa (Sulfonamide Allergy Severe Verified 03/19/20 14:47 Antibiotics) Home Medications: Ambulatory Orders Alprazolam [Xanax] 0.25 mg PO Q6H PRN 10/02/16 Atorvastatin Ca [Lipitor] 10 mg PO DAILY 10/02/16 Cholecalciferol (Vitamin D3) [Vitamin D3] 1,000 unit PO DAILY 10/02/16 Cranberry Fruit Extract [Cranberry] 125 mg PO DAILY 10/02/16 Cyanocobalamin (Vitamin B-12) [Vitamin B12] 1,000 mcg PO DAILY 10/02/16 [place]-3/Dha/Epa/Fish Oil [Fish Oil 1,000 mg Softgel] 1,000 mg PO DAILY 10/02/16 Acetaminophen [Tylenol .Regular Strength -] 650 mg PO Q4H PRN #0 tablet 10/05/16 Levothyroxine [Synthroid -] 75 mcg PO DAILY@0700 tablet 10/05/16 Metoprolol Succinate 25 mg PO DAILY 03/19/20 Anemia: No Asthma: No Cancer: Yes (hx lung) Cardiac Disorders: No CVA: No CHF: No Dementia: No Diabetes: No GI Disorders: No Disorders: No HTN: No Hypercholesterolemia: No Liver Disease: No Seizures: No Thyroid Disease: No - Surgical History Lung Surgery: Yes (lung sx) - Psycho-Social/Smoking History Smoking History: Former smoker Have you smoked in the past 12 months: No If you are a former smoker, when did you quit?: 2008 Review of Systems - Review of Systems Able to Perform ROS?: Yes Comments:: 03/19/20 14:53 CONSTITUTIONAL: Absent: Fever, Chills, Diaphoresis, Generalized Weakness, Malaise, Loss of Appetite HEENT: Absent: Rhinorrhea, Nasal Congestion, Throat Pain, Throat Swelling, Difficulty Swallowing, Mouth Swelling, Ear Pain, Eye Pain, Visual Changes CARDIOVASCULAR:+low blood pressure. Absent: Chest Pain, Syncope, Palpitations, Irregular Heart Rate, Lightheadedness, Peripheral Edema RESPIRATORY:+shortness of breath Absent: Cough, Orthopnea, Wheezing, Stridor, Hemoptysis GASTROINTESTINAL: Absent: Abdominal pain, Abdominal Distension, Nausea, Vomiting, Diarrhea, Constipation, Melena, Hematochezia GENITOURINARY: Absent: Dysuria, Frequency, Urgency, Hesitancy, Flank Pain, Genital Pain MUSCULOSKELETAL: Absent: Myalgia, Arthralgia, Joint Swelling, Back pain, Neck Pain SKIN: Absent: Rash, Itching, Pallor HEMEATOLOGIC/IMMUNOLOGIC: Absent: Easy Bleeding, Easy Bruising, Lymphadenopathy, Frequent infections ENDOCRINE: Absent: Unexplained Weight Gain, Unexplained Weight Loss, Heat Intolerance, Cold Intolerance NEUROLOGIC: Absent: Headache, Focal Weakness, Paresthesias, Vertigo, Lightheadedness, Unsteady Gait, Seizure, Mental Status Changes, Incontinence PSYCHIATRIC: Absent: Anxiety, Depression *Physical Exam - Physical Exam 03/19/20 15:51 GENERAL: The patient is awake, alert, and fully oriented, in no acute distress. She appears well. She does not have any shortness of breath. She does not have any dizziness currently. HEAD: Normal with no signs of trauma. EYES: Pupils equal, round and reactive to light, extraocular movements intact, sclera anicteric, conjunctiva clear. ENT: Ears normal, nares patent, oropharynx clear without exudates. Moist mucous membranes. NECK: Normal range of motion, supple without lymphadenopathy, JVD, or masses. LUNGS: Breath sounds equal, clear to auscultation bilaterally. No wheezes, and no crackles. HEART: Regular rate and rhythm, normal S1 and S2 without murmur, rub or gallop. ABDOMEN: Soft, nontender, normoactive bowel sounds. No guarding, no rebound. No masses. EXTREMITIES: Normal range of motion, 1+ bilateral pitting ankle edema, symmetrical, chronic as per patient and her granddaughter. No clubbing or cyanosis. No cords, erythema, or tenderness. NEUROLOGICAL: Cranial nerves II through XII grossly intact. Normal speech, normal gait. PSYCH: Normal mood, normal affect. SKIN: Warm, Dry, normal turgor, no rashes or lesions noted. Heart Score/ECG Review - ECG Impressions Comment:: 03/19/20 15:52 Twelve-lead EKG shows normal sinus rhythm at a rate of 71 bpm. The axis is normal. The intervals are normal. There are no abnormal Q waves. There is no abnormal ST elevation or depression. T waves appear unremarkable. Impression: Unremarkable twelve-lead EKG. ED Treatment Course - LABORATORY CBC & Chemistry Diagram: 03/19/20 15:00 03/19/20 15:00 Medical Decision Making - Medical Decision Making 03/19/20 15:53 89-year-old female with history of lung cancer in the distant past, status post right lung resection, former smoker with COPD, presents after an episode of lightheadedness 4 days ago which had resolved. Today she did not have lightheadedness, but her blood pressure on the machine at home was noted to be in the 80s. She did note some shortness of breath today when walking from the car to the house. That resolved. She denies chest pain, cough, sputum, palpitations, fever, chills, vomiting, diarrhea, diaphoresis, and all other symptoms. She states she feels currently normal and well. Physical examination was unremarkable. She has mild bilateral pitting ankle edema which is chronic, better than normal. She is ambulatory with no dyspnea. Vital signs on serial checks were normal including blood pressure in the 140s systolic. Laboratory work-up is notable for microcytic anemia. She also has mild chronic kidney disease. The patient and her granddaughter state that Dr. Diego, recently performed lab work and started her on iron pills which she was unable to tolerate. She also has known chronic kidney disease. Twelve-lead EKG is unremarkable. Chest x-ray PA and lateral shows evidence of prior surgery with clips in the right hemithorax and an aortic endograft in the abdomen. There are no acute findings. Impression: Low reading on the blood pressure machine at home, currently asymptomatic with normal blood pressure. Work-up is notable for chronic anemia and chronic kidney disease. All stable. Patient will follow-up for these findings with Dr. Aneesh Ashley, her primary physician. Call placed to Dr. Ashley to review the labs. Copy of the labs given to the patient to bring to her next appointment. I recommended that the patient and her daughter discussed the possibility of IV iron to treat the iron deficiency anemia, given her inability to tolerate oral iron. They state they will follow-up with Dr. Diego soon and review these options with him. Discharge - Discharge Information Problems reviewed: Yes Clinical Impression/Diagnosis: Anemia Qualifiers: Anemia type: iron deficiency Iron deficiency anemia type: unspecified iron deficiency Qualified Code(s): D50.9 - Iron deficiency anemia, unspecified Chronic kidney disease Qualifiers: Chronic kidney disease stage: unspecified stage Qualified Code(s): N18.9 - Chronic kidney disease, unspecified Condition: Good - Admission No - Follow up/Referral Referrals: Aneesh Ashley MD [Primary Care Provider] - 2 Days - Patient Discharge Instructions Patient Printed Discharge Instructions: How to Monitor Your Blood Pressure at Home Additional Instructions: Today your evaluated for a low blood pressure reading at home and for shortness of breath. Your EKG and chest x-ray were normal. The blood tests revealed mild anemia (low red blood cells) and mild kidney disease. None of these findings are new. You are advised to follow-up with Dr. Aneesh Ashley and to bring a co py of your labs to your appointment. You may want to discuss IV iron therapy with Dr. Ashley. Return to the emergency department for any severe or progressive symptoms. - Post Discharge Activity
--- NOTE | 2020-03-20 11:29 | EKG ---
Test Reason : Blood Pressure : / mmHG Vent. Rate : 071 BPM Atrial Rate : 071 BPM P-R Int : 146 ms QRS Dur : 076 ms QT Int : 418 ms P-R-T Axes : 073 042 062 degrees QTc Int : 454 ms NORMAL SINUS RHYTHM NONSPECIFIC ST ABNORMALITY ABNORMAL ECG WHEN COMPARED WITH ECG OF 04-MAY-2008 10:42, NO SIGNIFICANT CHANGE WAS FOUND Confirmed by JORDAN IVEY MD ([id number]) on 03/20/2020 11:29:24 AM Referred By: Confirmed By:JORDAN IVEY MD
== END 2020-03-19 16:02 | disposition home or self-care (01) ==
LOC: FER 14:22
DX: D50.9 Iron deficiency anemia, unspecified (principal); N18.9 Chronic kidney disease, unspecified
CPT/HCPCS: 36415; 71046-TC-FY; 80053; 84484; 85025; 93005; 99285-25

== ENCOUNTER 2020-06-01 19:53 | Inpatient (IN) | payer OTHER ==
--- NOTE | 2020-06-01 20:06 | PDOC ---
History of Present Illness - General Stated Complaint: ALTERED MENTAL STATUS,FEVER Time Seen by Provider: 06/01/20 20:15 History Source: Patient Exam Limitations: No Limitations - History of Present Illness Initial Comments: 06/01/20 20:26 Patient is an 89 y.o. F PMHx COPD, lung ca s/p lobectomy, HLD, CAD, hypothyroidism, OA and AAA s/p endovascular w/ b/l iliac angiography. Patient present by EMS due to 5 days of lethargy, inability to walk, decreased appetite along with 2 days of fever most recent 101. Patient states she feels weak and is more tired than usual. Patient denies headache, chest pain, SOB, N/V/D, numbness or tingling in the extremities. PCP: Dr. Ashley PMHx: COPD, lung ca s/p lobectomy, HLD, CAD, hypothyroidism, OA PSHx: AAA s/p endovascular w/ b/l iliac angiography Meds: In Chart Allergies: Codeine, penecillin, quinolones, sulfa CXR: Dispo: 06/01/20 21:26 Is this a multiple visit Asthma Patient?: No Timing/Duration: 1 week Severity: moderate Beta Saundra Contraindications(Core Measure): Yes: Not Prescribed Beta Saundra Given by EMS(Core Measure): No Beta Saundra Taken at Home(Core Measure): No Beta Saundra Not Indicated at this Time(Core Measure): Yes Past History - Medical History Allergies/Adverse Reactions: Allergies Allergy/AdvReac Type Severity Reaction Status Date / Time codeine Allergy Severe Vomiting Verified 06/01/20 20:08 Penicillins Allergy Severe Vomiting Verified 06/01/20 20:08 Quinolones Allergy Severe Vomiting Verified 06/01/20 20:08 Sulfa (Sulfonamide Allergy Severe Verified 06/01/20 20:08 Antibiotics) Home Medications: Ambulatory Orders Alprazolam [Xanax] 0.25 mg PO Q6H PRN 10/02/16 Atorvastatin Ca [Lipitor] 10 mg PO DAILY 10/02/16 Cholecalciferol (Vitamin D3) [Vitamin D3] 1,000 unit PO DAILY 10/02/16 Cranberry Fruit Extract [Cranberry] 125 mg PO DAILY 10/02/16 Cyanocobalamin (Vitamin B-12) [Vitamin B12] 1,000 mcg PO DAILY 10/02/16 [place]-3/Dha/Epa/Fish Oil [Fish Oil 1,000 mg Softgel] 1,000 mg PO DAILY 10/02/16 Acetaminophen [Tylenol .Regular Strength -] 650 mg PO Q4H PRN #0 tablet 10/05/16 Levothyroxine [Synthroid -] 75 mcg PO DAILY@0700 tablet 10/05/16 Anemia: No Asthma: No Cancer: Yes (hx lung) Cardiac Disorders: No CVA: No COPD: Yes CHF: No Dementia: No Diabetes: No GI Disorders: No Disorders: No HTN: No Hypercholesterolemia: No Liver Disease: No Seizures: No Thyroid Disease: No - Surgical History Abdominal Surgery: Yes (ENDOVASCULAR AAA REPAIR) Lung Surgery: Yes (lung sx) - Psycho-Social/Smoking History Smoking History: Former smoker Have you smoked in the past 12 months: No If you are a former smoker, when did you quit?: 2007 ED Treatment Course - LABORATORY CBC & Chemistry Diagram: 06/02/20 05:43 06/02/20 05:43 Medical Decision Making - Medical Decision Making 06/01/20 20:31 Patient is an 89 y.o. F PMHx COPD, lung ca s/p lobectomy, HLD, CAD, hypothyroidism, OA and AAA s/p endovascular w/ b/l iliac angiography. Patient present by EMS due to 5 days of lethargy, inability to walk, decreased appetite along with 2 days of fever most recent 101. DDx: Septic (urinary source vs. blood vs. pulmonary), UTI, cachexia, pneumonia Labs: pending CXR: pending Dispo: Signed out to resident Dr. Mcadams. 06/01/20 21:26 06/01/20 21:51 Discharge - Discharge Information Problems reviewed: Yes Clinical Impression/Diagnosis: Colonic mass Anemia Qualifiers: Anemia type: unspecified type Qualified Code(s): D64.9 - Anemia, unspecified Condition: Fair - Follow up/Referral - Patient Discharge Instructions - Post Discharge Activity
[2020-06-01 20:19] VITALS: BMI 18.5
--- OUTSIDE RECORDS SUMMARY | 2020-06-01 20:48 | XMS ---
:1930 Author Organization [facility] Support Name Relationship Address Phone RE Unavailable Unavailable Unavailable GALE DAUGHTER [address] [place] [address] [address] [place] [address] Re-disclosure Warning The records that you are about to access may contain information from federally- assisted alcohol or drug abuse programs. If such information is present, then the following federally mandated warning applies: This information has been disclosed to you from records protected by federal confidentiality rules (42 CFR part 2). The federal rules prohibit you from making any further disclosure of this information unless further disclosure is expressly permitted by the written consent of the person to whom it pertains or as otherwise permitted by 42 CFR part 2. A general authorization for the release of medical or other information is NOT sufficient for this purpose. The Federal rules restrict any use of the information to criminally investigate or prosecute any alcohol or drug abuse patient.The records that you are about to access may contain highly sensitive health information, the redisclosure of which is protected by Article 27-F of the [facility] Public Health law. If you continue you may haveaccess to information: Regarding HIV / AIDS; Provided by facilities licensed or operated by the [facility] Office of Mental Health; or Provided by the [facility] Office for People With Developmental Disabilities. If such information is present, then the following [facility] mandated warning applies: This information has been disclosed to you from confidential records which are protected by state law. State law prohibits you from making any further disclosure of this information without the specific written consent of the person to whom it pertains, or as otherwise permitted by law. Any unauthorized further disclosure in violation of state law may result in a fine or long term sentence or both. A general authorization for the release of medical or other information is NOT sufficient authorization for further disclosure. Insurance Providers Payer name Policy type Policy ID Covered Covered democrat's Policy P eric / Coverage democrat ID relationship to Gleason Inf ormation type gleason [place] [id number] SP [id number] [facility] (MEDICARE) [place] [id number] SP [id number] [facility] (MEDICARE)
[2020-06-01] MEDS ORDERED: LACTATED RINGERS SOLUTION 1000 ML INFUS.BAG IV ONE (20:54)
[2020-06-01] MEDS ORDERED: ACETAMINOPHEN 1000 MG/100 ML VIAL (NON FORMULARY) IVPB ONE (20:55)
--- NOTE | 2020-06-01 21:07 | PDOC ---
Documentation entered by Lucho Perez SCRIBE, acting as scribe for Elsa Mike DO. Elsa Mike DO: This documentation has been prepared by the Ana blount Angel, SCRIBE, under my direction and personally reviewed by me in its entirety. I confirm that the documentation accurately reflects all work, treatment, procedures, and medical decision making performed by me. Attending Attestation - Resident Resident Name: Alan Fregoso - ED Attending Attestation I have performed the following: I have examined & evaluated the patient, The case was reviewed & discussed with the resident, I agree w/resident's findings & plan, Exceptions are as noted - HPI HPI: 06/01/20 21:07 The patient is an 89 year old female with a significant past medical history of COPD, lung ca s/p lobectomy, HLD, CAD, hypothyroidism, OA and AAA s/p endovascular w/ b/l iliac angiography who presents to the ED with 5 days of lethargy, inability to walk and loss of appetite. The patient states she has had a fever since yesterday which was 99 but 101 last checked today. The patient notes feeling weaker and more tired than usual. The patient denies headaches, chest pain, N/V/D or any numbness or tingling in her extremities. PCP: - Physicial Exam PE: 06/01/20 20:54 Gen: awake, moaning, answers questions appropriately, hot to touch heart: +s1s2 reg lungs: diminished bs b/l bases otherwise clear abd: soft, suprapubic ttp, no rebound or guarding ext: no c/c/e, moves all extremities - Medical Decision Making 06/01/20 21:05 a/p: 89yo female from home for eval of lethargy and fever -fever started last night, but lethargy started over the weekend -hx of uti in the past -no cough, no congestion -no n/v/d -denies dysuria or freq, but has ttp over the bladder -febrile in the Er, took 500mg tylenol at 6pm -will send labs, cultures, covid swab, ekg, cxr, ua, ucx -suspect uti -will start ivf as pt appears dehydrated and hasn't been eating well since the weekend -will most likely need admission 06/01/20 21:07 cxr clear 06/01/20 22:26 h/h low 6.7 rectal per the resident, stool for heme ua does not show uti given pt had abd ttp, will send for ct abd/pelvis 06/01/20 22:32 hgb down 3 grams from march discussed blood transfusion, daughter, who is POA consent to blood transfusion will also send for ct, discussed with family who agree with the plan 06/01/20 22:48 daughter has signed the blood transfusion consent 06/01/20 23:35 stool for heme neg ct pending read 06/02/20 00:25 mass seen in the colon 9mm in length on IOC, pt has never had a colonoscopy will need admission for symptomatic anemia microblog sent to [facility] for admission 06/02/20 00:46 case discussed with the resident from [facility] who accepts pt to service Heart Score/ECG Review - ECG Intrepretation Comment:: 06/01/20 22:49 sinus at 84, nl axis, nl interval, no acute st/t wave findings Discharge - Discharge Information Problems reviewed: Yes Clinical Impression/Diagnosis: Colonic mass Anemia Qualifiers: Anemia type: unspecified type Qualified Code(s): D64.9 - Anemia, unspecified Condition: Fair - Admission Yes - Follow up/Referral - Patient Discharge Instructions - Post Discharge Activity
[2020-06-01] MEDS ORDERED: ACETAMINOPHEN INJECTION 100 ML IVPB ONE (21:39)
[2020-06-01 21:42] LABS: BASO % 0.6 % (0-2.0); HEMATOCRIT 20.6 % (32.4-45.2); LYMPH % 15.7 % (8-40); MCH 24.6 pg (25.7-33.7); MCHC 32.6 g/dl (32.0-36.0); MEAN CELL VOLUME 75.6 fl (80-96); MEAN PLT VOLUME 6.8 fl (7.5-11.1); MONO % 11.2 % (3.8-10.2); NEUT % 70.5 % (42.8-82.8); PLATELET COUNT 295 K/MM3 (134-434); RBC 2.72 M/mm3 (3.60-5.2); RDW 16.2 % (11.6-15.6); WHITE BLOOD COUNT 11.2 K/mm3 (4.0-10.0)
[2020-06-01 21:42] LABS: VENOUS BASE EXCESS 3.1 mmol/L (-2-2); VENOUS O2 SATURATION 93.1 % (70-80); VENOUS PCO2 33.4 mmHg (38-52); VENOUS PH 7.513 (7.310-7.410)
[2020-06-01 21:46] LABS: HEMOGLOBIN 6.7 GM/dL (10.7-15.3)
[2020-06-01 21:50] LABS: INR 1.14 (0.83-1.09); PROTHROMBIN TIME (PATIENT) 13.5 SEC (9.7-13.0)
[2020-06-01 21:51] LABS: PH,URINE 6.5 (5.0-8.0); URINE APPEARANCE CLEAR; URINE BILIRUBIN NEGATIVE (NEGATIVE); URINE COLOR YELLOW; URINE GLUCOSE (UA) NEGATIVE (NEGATIVE); URINE KETONE NEGATIVE (NEGATIVE); URINE LEUK ESTERASE NEGATIVE (NEGATIVE); URINE NITRITE NEGATIVE (NEGATIVE); URINE PROTEIN NEGATIVE (NEGATIVE); URINE UROBILINOGEN 0.2 mg/dL (0.2-1.0)
[2020-06-01 21:53] LABS: ACTIVATED PTT 26.4 SECONDS (25.2-36.5)
--- NOTE | 2020-06-01 22:13 | PDOC ---
*Physical Exam - Vital Signs Last Vital Signs Temp Pulse Resp BP Pulse Ox 101.5 F H 88 20 122/52 L 97 06/01/20 20:08 06/01/20 20:08 06/01/20 20:08 06/01/20 20:08 06/01/20 20:08 ED Treatment Course - LABORATORY CBC & Chemistry Diagram: 06/02/20 05:43 06/02/20 05:43 - ADDITIONAL ORDERS Additional order review: Laboratory Results 06/01/20 06/01/20 06/01/20 21:16 21:05 21:02 PT with INR 13.50 H INR 1.14 H PTT (Actin FS) 26.4 VBG pH 7.513 H POC VBG pCO2 33.4 L POC VBG pO2 58.9 H VBG HCO3 26.2 VBG O2 Sat ([place]) 93.1 H VBG Base Excess 3.1 H Urine Color Yellow Urine Appearance Clear Urine pH 6.5 Ur Specific [place] 1.005 L Urine Protein Negative Urine Glucose (UA) Negative Urine Ketones Negative Urine Blood 1+ H Urine Nitrite Negative Urine Bilirubin Negative Urine Urobilinogen 0.2 Ur Leukocyte Esterase Negative 06/01/20 21:05 RBC 2.72 L MCV 75.6 L MCHC 32.6 RDW 16.2 H MPV 6.8 L D Neutrophils % 70.5 Lymphocytes % 15.7 D Monocytes % 11.2 H Eosinophils % 2.0 Basophils % 0.6 - Medications Given in the ED: ED Medications Discontinued Medications Generic Name Dose Route Start Last Admin Trade Name Freq PRN Reason Stop Dose Admin Acetaminophen 1,000 mg 06/01/20 20:55 06/01/20 22:04 Ofirmev Injection - IVPB 06/01/20 20:56 1,000 mg ONCE ONE Administration Lactated Ringer's 1,000 ml 06/01/20 20:54 06/01/20 22:04 Lactated Ringers Solution IV 06/01/20 20:55 1,000 ml ONCE ONE Administration Medical Decision Making - Medical Decision Making 06/01/20 22:13 Received as signout from Dr. Fregoso. Hgb 6.7, will get fecal occult. UA without UTI. Will get CT abd/pelvis with contrast considering large Hgb drop, transfuse 1 unit. 06/01/20 22:28 Fecal occult without obvious melena or bleeding, will f/u. Plan on transfusing 2 units pRBCs considering CAD. EKG poor quality, normal sinus at 84 bpm, DC 122, QRS 88, QTc 503 (grossly appears less than alf between QRS complexes), no ST segment changes. 06/01/20 23:02 Stool occult is negative. 06/02/20 00:20 CT abd/pelvis: There are emphysematous changes in the visualized lower lungs. Coronary artery calcifications. Small hiatal hernia. Likely sludge and/or small stones in the gallbladder with thickened appearance of the gallbladder wall. No pericholecystic fluid. Suggest correlation for right upper symptoms and further evaluation with ultrasound if clinically warranted. The liver, spleen, pancreas and adrenal glands are grossly normal allowing for lack of intravenous contrast. The left kidney is normal in size without hydronephrosis or nephrolithiasis. There are renal vascular calcifications. The right kidney is atrophic. Aortic and biiliac stent grafts with infrarenal abdominal aortic aneurysm measuring 3.2 x 3.3 cm in greatest AP and transverse dimension. There is no bowel distention. There is lobulated thickening of a segment of mid transverse colon measuring approximately 9-10 cm in length concerning for malignancy. Colonic diverticulosis predominantly sigmoid colon without diverticulitis. Moderately distended urinary bladder, normal in contour without thickening. No intra-abdominal free air or free fluid. Superficial soft tissue edema about the left hip and visualized upper left thigh. Plan for admit with anemia and new colonic mass. Discharge - Discharge Information Problems reviewed: Yes Clinical Impression/Diagnosis: Colonic mass Anemia Qualifiers: Anemia type: unspecified type Qualified Code(s): D64.9 - Anemia, unspecified Condition: Fair - Admission Yes - Follow up/Referral - Patient Discharge Instructions - Post Discharge Activity
[2020-06-01 22:15] LABS: ALBUMIN 1.7 g/dl (3.4-5.0); ALK PHOS 85 U/L (45-117); ANION GAP 7 MMOL/L (8-16); BILIRUBIN,TOTAL 0.5 mg/dL (0.2-1); BLOOD UREA NITROGEN 17.4 mg/dL (7-18); CHLORIDE 100 mmol/L (98-107); CO2 27 mmol/L (21-32); CREATININE 1.4 mg/dL (0.55-1.3); GLUCOSE,RANDOM 108 mg/dL (74-106); MAGNESIUM 1.8 mg/dL (1.8-2.4); POTASSIUM 3.8 mmol/L (3.5-5.1); SGOT/AST 13 U/L (15-37); SODIUM 135 mmol/L (136-145)
[2020-06-01 22:28] LABS: EPI CELLS 5.5 /uL (0-25.1); HYALINE CASTS 0.12 /uL (0-3.1); URINE BACTERIA 273.4 /uL (0-1359); URINE RBC 64.7 /uL (0-23.9); URINE WBC 0.7 /uL (0-25.8)
[2020-06-01 22:37] LABS: SGPT/ALT 10 U/L (13-61)
--- NOTE | 2020-06-02 00:51 | HP ---
CHIEF COMPLAINT: Lethargy PCP: Dr. Ashley HISTORY OF PRESENT ILLNESS: Patient is an 89 y.o. F PMHx COPD, lung ca s/p lobectomy, HLD, CAD, hypothyroidism, OA and AAA s/p endovascular w/ b/l iliac angiography in . Patient BIBEMS due to 5 days of decreased energy and increased fatigue. THe patient notes that she has never felt this before and states her appetite has not changed. The patient denies changes in bowel habits, rapid change in weight, night sweats or any concerning symptoms. The patient also states she lives at home alone and is compliant with her home medications. ER course was notable for: (1) Hgb 6.7 w 1 unit of PRBC (2)CT scan - lobulated thickening of a segment of mid transverse colon measuring approximately 9-10 cm in length concerning for malignancy. Colonic diverticulosis predominantly sigmoid colon without diverticulitis. (3) Recent Travel: no PAST MEDICAL HISTORY: PAST SURGICAL HISTORY: Social History: Smoking: quit 20 years ago Alcohol: no Drugs: no Allergies codeine Allergy (Severe, Verified 06/01/20 20:08) Vomiting Penicillins Allergy (Severe, Verified 06/01/20 20:08) Vomiting Quinolones Allergy (Severe, Verified 06/01/20 20:08) Vomiting Sulfa (Sulfonamide Antibiotics) Allergy (Severe, Verified 06/01/20 20:08) HOME MEDICATIONS: Home Medications Medication Instructions Recorded Alprazolam [Xanax] 0.25 mg PO Q6H PRN 10/02/16 Atorvastatin Ca [Lipitor] 10 mg PO DAILY 10/02/16 Cholecalciferol (Vitamin D3) 1,000 unit PO DAILY 10/02/16 [Vitamin D3] Cranberry Fruit Extract [Cranberry] 125 mg PO DAILY 10/02/16 Cyanocobalamin (Vitamin B-12) 1,000 mcg PO DAILY 10/02/16 [Vitamin B12] [place]-3/Dha/Epa/Fish Oil [Fish Oil 1,000 mg PO DAILY 10/02/16 1,000 mg Softgel] Acetaminophen [Tylenol .Regular 650 mg PO Q4H PRN #0 tablet 10/05/16 Strength -] Levothyroxine [Synthroid -] 75 mcg PO DAILY@0700 tablet 10/05/16 REVIEW OF SYSTEMS CONSTITUTIONAL: Absent: fever, chills, diaphoresis, generalized weakness, malaise, loss of appetite, weight change HEENT: Absent: rhinorrhea, nasal congestion, throat pain, throat swelling, difficulty swallowing, mouth swelling, ear pain, eye pain, visual changes CARDIOVASCULAR: Absent: chest pain, syncope, palpitations, irregular heart rate, lightheadedness, peripheral edema RESPIRATORY: Absent: cough, shortness of breath, dyspnea with exertion, orthopnea, wheezing, stridor, hemoptysis GASTROINTESTINAL: Absent: abdominal pain, abdominal distension, nausea, vomiting, diarrhea, constipation, melena, hematochezia PHYSICAL EXAMINATION Vital Signs - 24 hr 06/01/20 06/01/20 20:08 22:24 Temperature 101.5 F H 99.5 F Pulse Rate 88 Respiratory 20 Rate Blood Pressure 122/52 L O2 Sat by Pulse 97 Oximetry (%) GENERAL: Awake, alert, and fully oriented, in no acute distress. HEAD: Normal with no signs of trauma. EYES: Pupils equal, round and reactive to light, extraocular movements intact, sclera anicteric, conjunctiva clear. No lid lag LUNGS: absent breath sounds on right upper lobe HEART: Regular rate and rhythm, normal S1 and S2 without murmur, rub or gallop. ABDOMEN: HARD LLQ mass on palpation LOWER EXTREMITIES: 2+ pulses, warm, well-perfused. No calf tenderness. No peripheral edema. Laboratory Results - last 24 hr 06/01/20 06/01/20 06/01/20 21:02 21:05 21:05 WBC 11.2 H RBC 2.72 L Hgb 6.7 L* Hct 20.6 L D MCV 75.6 L MCH 24.6 L D MCHC 32.6 RDW 16.2 H Plt Count 295 D MPV 6.8 L D Absolute Neuts (auto) 7.9 Neutrophils % 70.5 Lymphocytes % 15.7 D Monocytes % 11.2 H Eosinophils % 2.0 Basophils % 0.6 Nucleated RBC % 0 PT with INR 13.50 H INR 1.14 H PTT (Actin FS) 26.4 VBG pH POC VBG pCO2 POC VBG pO2 VBG HCO3 VBG O2 Sat ([place]) VBG Base Excess Sodium Potassium Chloride Carbon Dioxide Anion Gap BUN Creatinine Est GFR (CKD-EPI)AfAm Est GFR (CKD-EPI)NonAf Random Glucose Lactic Acid Calcium Magnesium Total Bilirubin AST ALT Alkaline Phosphatase Creatine Kinase Troponin I Total Protein Albumin TSH Urine Color Yellow Urine Appearance Clear Urine pH 6.5 Ur Specific [place] 1.005 L Urine Protein Negative Urine Glucose (UA) Negative Urine Ketones Negative Urine Blood 1+ H Urine Nitrite Negative Urine Bilirubin Negative Urine Urobilinogen 0.2 Ur Leukocyte Esterase Negative Urine WBC (Auto) 0.7 Urine RBC (Auto) 64.7 Urine Casts (Auto) 0.12 U Epithel Cells (Auto) 5.5 Urine Bacteria (Auto) 273.4 Stool Occult Blood Blood Type Antibody Screen Crossmatch 06/01/20 06/01/20 06/01/20 21:05 21:05 21:16 WBC RBC Hgb Hct MCV MCH MCHC RDW Plt Count MPV Absolute Neuts (auto) Neutrophils % Lymphocytes % Monocytes % Eosinophils % Basophils % Nucleated RBC % PT with INR INR PTT (Actin FS) VBG pH 7.513 H POC VBG pCO2 33.4 L POC VBG pO2 58.9 H VBG HCO3 26.2 VBG O2 Sat ([place]) 93.1 H VBG Base Excess 3.1 H Sodium 135 L Potassium 3.8 Chloride 100 Carbon Dioxide 27 Anion Gap 7 L BUN 17.4 Creatinine 1.4 H Est GFR (CKD-EPI)AfAm 39.06 Est GFR (CKD-EPI)NonAf 33.70 Random Glucose 108 H Lactic Acid 1.8 Calcium 8.0 L Magnesium 1.8 Total Bilirubin 0.5 AST 13 L ALT 10 L Alkaline Phosphatase 85 Creatine Kinase 48 Troponin I < 0.02 Total Protein 5.0 L Albumin 1.7 L TSH 0.34 L Urine Color Urine Appearance Urine pH Ur Specific [place] Urine Protein Urine Glucose (UA) Urine Ketones Urine Blood Urine Nitrite Urine Bilirubin Urine Urobilinogen Ur Leukocyte Esterase Urine WBC (Auto) Urine RBC (Auto) Urine Casts (Auto) U Epithel Cells (Auto) Urine Bacteria (Auto) Stool Occult Blood Blood Type Antibody Screen Crossmatch 06/01/20 06/01/20 21:16 22:25 WBC RBC Hgb Hct MCV MCH MCHC RDW Plt Count MPV Absolute Neuts (auto) Neutrophils % Lymphocytes % Monocytes % Eosinophils % Basophils % Nucleated RBC % PT with INR INR PTT (Actin FS) VBG pH POC VBG pCO2 POC VBG pO2 VBG HCO3 VBG O2 Sat ([place]) VBG Base Excess Sodium Potassium Chloride Carbon Dioxide Anion Gap BUN Creatinine Est GFR (CKD-EPI)AfAm Est GFR (CKD-EPI)NonAf Random Glucose Lactic Acid Calcium Magnesium Total Bilirubin AST ALT Alkaline Phosphatase Creatine Kinase Troponin I Total Protein Albumin TSH Urine Color Urine Appearance Urine pH Ur Specific [place] Urine Protein Urine Glucose (UA) Urine Ketones Urine Blood Urine Nitrite Urine Bilirubin Urine Urobilinogen Ur Leukocyte Esterase Urine WBC (Auto) Urine RBC (Auto) Urine Casts (Auto) U Epithel Cells (Auto) Urine Bacteria (Auto) Stool Occult Blood Negative Blood Type O NEGATIVE Antibody Screen Negative Crossmatch See Detail ASSESSMENT/PLAN: Patient is an 89 y.o. F PMHx COPD, lung ca s/p lobectomy, HLD, CAD, hypothyroidism, OA and AAA s/p endovascular w/ b/l iliac angiography. Patient BI BEMS due to 5 days of decreased energy and increased fatigue admitted for anemia. #Anemia Admit to Med/[place] Monitor CBC x1 PRBC will monitor H/H Monitor Electrolytes Heme/onc consult GI consult iron study - MCV 76 possible iron def #leg swelling DVT study dopplar BL LE #FEN Full diet monitor lytes #DVTppx SCDs ATTENDING PHYSICIAN STATEMENT I saw and evaluated the patient. I reviewed the resident's note and discussed the case with the resident. I agree with the resident's findings and plan as documented. SUBJECTIVE: OBJECTIVE: ASSESSMENT AND PLAN:
--- OUTSIDE RECORDS SUMMARY | 2020-06-02 00:56 | XMS ---
:1930 Author Organization [facility] Support Name Relationship Address Phone RE Unavailable Unavailable Unavailable RE Unavailable Unavailable Unavailable GALE DAUGHTER [address] [place] [address] [address] [place] [address] Re-disclosure Warning The records that you are [...] is protected by Article 27-F of the [facility] Public Health law. If you continue you may haveaccess to information: Regarding HIV / AIDS; Provided by facilities licensed or operated by the [facility] Office of Mental Health; or Provided by the [facility] Office for People With Developmental Disabilities. If such information is present, then the following [facility] mandated warning applies: This information has been [...] law may result in a fine or assisted sentence or both. A general authorization for the release of medical or other information is NOT sufficient authorization for further disclosure. Insurance Providers Payer name Policy type Policy ID Covered Covered green party's Policy P eric / Coverage green party ID relationship to Gleason Inf ormation type gleason VALPARAISO [id number] [facility] (MEDICARE) VALPARAISO [id number] SP [id number] [facility] (MEDICARE)
--- NOTE | 2020-06-02 01:49 | PN ---
Teaching Attending Note Name of Resident: Armand Aburto ATTENDING PHYSICIAN STATEMENT I saw and evaluated the patient. I reviewed the resident's note and discussed the case with the resident. I agree with the resident's findings and plan as documented. SUBJECTIVE: 89yoF with remote h/o lung cancer s/p lobectomy, COPD, AAA s/p endovascular repair, chronic anemia, HLD, and hypothyroidism who presents with 5 days of fatigue and general malaise. Patient is an unreliable historian, has difficulty with recent recall and she gives varying accounts of her presentation. Currently she states she was generally well until earlier this week when she felt more tired but denies abdominal pain, chest pain, palpitations, SOB, lightheadedness, syncope, fevers, or night sweats. Denies stool changes, melena, hematochezia, vomiting, or unexplained weight loss although she states she has not been eating much because she cannot cook and lives alone. Endorses several falls at home recently which she states is the cause of her lower extremity swelling. Cannot recall her last colonoscopy. Patient was febrile to 101.5F in the ED. Labs notable for Hgb 6.7, normal bilirubin. FOBT negative and UA bland with exception of 3+ blood. CXR unremarkable. CT abd/pelvis showed mid transverse colon thickening concerning for malignancy in addition to diverticulosis. Blood cultures obtained, patient received acetaminophen and 1L LR. Started on 1U PRBC transfusion. OBJECTIVE: Vital Signs - 24 hr 06/01/20 06/01/20 06/02/20 20:08 22:24 01:55 Temperature 101.5 F H 99.5 F 97.9 F Pulse Rate 88 Pulse Rate [ 71 Left Radial] Respiratory 20 20 Rate Blood Pressure 122/52 L Blood Pressure 156/75 [Left Arm] O2 Sat by Pulse 97 100 Oximetry (%) EXAM Gen: awake, alert, NAD. Thin, elderly woman wtih temporal wasting HEENT: dry mucous membranes CV: RRR, no MRG appreciated Resp: CTAB, unlabored Abd: Scaphoid, soft, NT, ND. +BS Ext: BLE edema, L>R with some weeping from the left anterior layne Neuro: CN II-XII grossly intact, strength 4+/5 all extremities Psych: AO to person, place, and year but poor recent recall; cannot recall conversations she had with prior providers since arrival or exam results Laboratory Results - last 24 hr 06/01/20 06/01/20 06/01/20 21:02 21:05 21:05 WBC 11.2 H RBC 2.72 L Hgb 6.7 L* Hct 20.6 L D MCV 75.6 L MCH 24.6 L D MCHC 32.6 RDW 16.2 H Plt Count 295 D MPV 6.8 L D Absolute Neuts (auto) 7.9 Neutrophils % 70.5 Lymphocytes % 15.7 D Monocytes % 11.2 H Eosinophils % 2.0 Basophils % 0.6 Nucleated RBC % 0 PT with INR 13.50 H INR 1.14 H PTT (Actin FS) 26.4 VBG pH POC VBG pCO2 POC VBG pO2 VBG HCO3 VBG O2 Sat ([place]) VBG Base Excess Sodium Potassium Chloride Carbon Dioxide Anion Gap BUN Creatinine Est GFR (CKD-EPI)AfAm Est GFR (CKD-EPI)NonAf Random Glucose Lactic Acid Calcium Magnesium Total Bilirubin AST ALT Alkaline Phosphatase Creatine Kinase Troponin I Total Protein Albumin TSH Urine Color Yellow Urine Appearance Clear Urine pH 6.5 Ur Specific [place] 1.005 L Urine Protein Negative Urine Glucose (UA) Negative Urine Ketones Negative Urine Blood 1+ H Urine Nitrite Negative Urine Bilirubin Negative Urine Urobilinogen 0.2 Ur Leukocyte Esterase Negative Urine WBC (Auto) 0.7 Urine RBC (Auto) 64.7 Urine Casts (Auto) 0.12 U Epithel Cells (Auto) 5.5 Urine Bacteria (Auto) 273.4 Stool Occult Blood Blood Type Antibody Screen Crossmatch 06/01/20 06/01/20 06/01/20 21:05 21:05 21:16 WBC RBC Hgb Hct MCV MCH MCHC RDW Plt Count MPV Absolute Neuts (auto) Neutrophils % Lymphocytes % Monocytes % Eosinophils % Basophils % Nucleated RBC % PT with INR INR PTT (Actin FS) VBG pH 7.513 H POC VBG pCO2 33.4 L POC VBG pO2 58.9 H VBG HCO3 26.2 VBG O2 Sat ([place]) 93.1 H VBG Base Excess 3.1 H Sodium 135 L Potassium 3.8 Chloride 100 Carbon Dioxide 27 Anion Gap 7 L BUN 17.4 Creatinine 1.4 H Est GFR (CKD-EPI)AfAm 39.06 Est GFR (CKD-EPI)NonAf 33.70 Random Glucose 108 H Lactic Acid 1.8 Calcium 8.0 L Magnesium 1.8 Total Bilirubin 0.5 AST 13 L ALT 10 L Alkaline Phosphatase 85 Creatine Kinase 48 Troponin I < 0.02 Total Protein 5.0 L Albumin 1.7 L TSH 0.34 L Urine Color Urine Appearance Urine pH Ur Specific [place] Urine Protein Urine Glucose (UA) Urine Ketones Urine Blood Urine Nitrite Urine Bilirubin Urine Urobilinogen Ur Leukocyte Esterase Urine WBC (Auto) Urine RBC (Auto) Urine Casts (Auto) U Epithel Cells (Auto) Urine Bacteria (Auto) Stool Occult Blood Blood Type Antibody Screen Crossmatch 06/01/20 06/01/20 21:16 22:25 WBC RBC Hgb Hct MCV MCH MCHC RDW Plt Count MPV Absolute Neuts (auto) Neutrophils % Lymphocytes % Monocytes % Eosinophils % Basophils % Nucleated RBC % PT with INR INR PTT (Actin FS) VBG pH POC VBG pCO2 POC VBG pO2 VBG HCO3 VBG O2 Sat ([place]) VBG Base Excess Sodium Potassium Chloride Carbon Dioxide Anion Gap BUN Creatinine Est GFR (CKD-EPI)AfAm Est GFR (CKD-EPI)NonAf Random Glucose Lactic Acid Calcium Magnesium Total Bilirubin AST ALT Alkaline Phosphatase Creatine Kinase Troponin I Total Protein Albumin TSH Urine Color Urine Appearance Urine pH Ur Specific [place] Urine Protein Urine Glucose (UA) Urine Ketones Urine Blood Urine Nitrite Urine Bilirubin Urine Urobilinogen Ur Leukocyte Esterase Urine WBC (Auto) Urine RBC (Auto) Urine Casts (Auto) U Epithel Cells (Auto) Urine Bacteria (Auto) Stool Occult Blood Negative Blood Type O NEGATIVE Antibody Screen Negative Crossmatch See Detail Imaging, EKG reviewed in chart ASSESSMENT AND PLAN: 89yoF with remote h/o lung cancer s/p lobectomy, COPD, AAA s/p endovascular repair, chronic anemia, HLD, and hypothyroidism who presents with 5 days of fatigue and general malaise, found to have anemia and possible mass in the transverse colon. Symptomatic anemia Hgb 6.7 on admission, hemodynamically stable FOBT negative, T bili within normal MCV is low, patient notes h/o iron deficiency anemia but is no longer on supplementation In setting of possible colon malignancy - 1U PRBC transfusion - rpt H/H after transfusion - add on reticulocyte panel, iron panel to labs prior to transfusion Possible mass in the transverse colon Noted on prelim read of CT abd/pelvis Patient denies melena/hematochezia or stool changes; cannot recall last colonoscopy - f/u final read of CT - heme/onc and GI consults BLE edema L>R, will rule out DVT - Doppler BLE Fever Without focalizing signs/sx of infection, WBC borderline UA and CXR negative, CT abd/pelvis without evidence of intraabdominal infection Possibly related to malignancy or DVT as above - f/u blood cultures - antibiotics deferred for now; monitor clinically Falls: PT consult Hypothyroid: continue levothyroxine DVT ppx: SCD if Dopplers negative
[2020-06-02 06:18] LABS: BASO % 0.5 % (0-2.0); EOS % 3.8 % (0-4.5); HEMATOCRIT 33.7 % (32.4-45.2); HEMOGLOBIN 11.1 GM/dL (10.7-15.3); LYMPH % 18.8 % (8-40); MCH 26.5 pg (25.7-33.7); MCHC 33.1 g/dl (32.0-36.0); MEAN CELL VOLUME 80.1 fl (80-96); MEAN PLT VOLUME 6.7 fl (7.5-11.1); MONO % 12.8 % (3.8-10.2); NEUT % 64.1 % (42.8-82.8); PLATELET COUNT 250 K/MM3 (134-434); RDW 17.9 % (11.6-15.6); WHITE BLOOD COUNT 11.2 K/mm3 (4.0-10.0)
[2020-06-02 06:42] LABS: ALBUMIN 1.7 g/dl (3.4-5.0); BLOOD UREA NITROGEN 17.2 mg/dL (7-18); CALCIUM 8.3 mg/dL (8.5-10.1); CREATININE 1.2 mg/dL (0.55-1.3); MAGNESIUM 1.9 mg/dL (1.8-2.4); PHOSPHOROUS 2.8 mg/dL (2.5-4.9); POTASSIUM 3.9 mmol/L (3.5-5.1); TOT PROT 4.7 g/dl (6.4-8.2)
[2020-06-02 07:07] LABS: BILIRUBIN,TOTAL 1.4 mg/dL (0.2-1)
[2020-06-02] MEDS ORDERED: LEVOTHYROXINE NA 25 MCG TABLET (FP) ONE (07:46)
[2020-06-02] MEDS: LEVOTHYROXINE NA 75 MCG TABLET (FP) PO SCH (07:48)
--- NOTE | 2020-06-02 08:37 | CON.GI ---
Consult Consult Specialty:: GI: Dr. Denton for Dr. Borden who resumes care 06/02 Referred by:: Dr. Aneesh Ashley Reason for Consultation:: Anemia - History of Present Illness Chief Complaint: Weakness History of Present Illness: 89F admitted for evaluation of weakness. Noted hgb 6.7. No overt bleeding history or bowel compiants. Transfused [address] scan revealed irregular area in the transverse colon raising suspicion for a mass. Ms. Fan alludes to having had colonoscopy several years ago that was unremarkable. No family history of colon cancer. - History Source History Provided By: Patient, Medical Record - Past Medical History ...: No - Past Surgical History Additional Surgical History: Lung lobectomy for cancer (patient was unsure as to which lung) - Alcohol/Substance Use Hx Alcohol Use: No - Smoking History Smoking history: Former smoker Have you smoked in the past 12 months: No If you are a former smoker, when did you quit?: 2007 - Social History Usual Living Arrangement: With Child ADL: Independent Place of : [facility] History of Recent Travel: No Home Medications - Allergies Allergies/Adverse Reactions: Allergies Allergy/AdvReac Type Severity Reaction Status Date / Time codeine Allergy Severe Vomiting Verified 06/01/20 20:08 Penicillins Allergy Severe Vomiting Verified 06/01/20 20:08 Quinolones Allergy Severe Vomiting Verified 06/01/20 20:08 Sulfa (Sulfonamide Allergy Severe Verified 06/01/20 20:08 Antibiotics) - Home Medications Home Medications: Ambulatory Orders Alprazolam [Xanax] 0.25 mg PO Q6H PRN 10/02/16 Atorvastatin Ca [Lipitor] 10 mg PO DAILY 10/02/16 Cholecalciferol (Vitamin D3) [Vitamin D3] 1,000 unit PO DAILY 10/02/16 Cranberry Fruit Extract [Cranberry] 125 mg PO DAILY 10/02/16 Cyanocobalamin (Vitamin B-12) [Vitamin B12] 1,000 mcg PO DAILY 10/02/16 [place]-3/Dha/Epa/Fish Oil [Fish Oil 1,000 mg Softgel] 1,000 mg PO DAILY 10/02/16 Acetaminophen [Tylenol .Regular Strength -] 650 mg PO Q4H PRN #0 tablet 10/05/16 Levothyroxine [Synthroid -] 75 mcg PO DAILY@0700 tablet 10/05/16 Family Medical History Other Family History: No familyn history of colorectal cancer or other GI malignancy Review of Systems - Review of Systems Constitutional: reports: Weakness. denies: Chills Cardiovascular: reports: Edema. denies: Chest Pain Respiratory: denies: Cough Gastrointestinal: denies: Abdominal Pain Physical Exam-GI Vital Signs: Vital Signs Temperature 98.0 F 06/02/20 05:12 Pulse Rate 63 06/02/20 05:12 Respiratory Rate 06/02/20 07:49 Blood Pressure 147/61 06/02/20 05:12 O2 Sat by Pulse Oximetry (%) 100 06/02/20 07:49 Constitutional: Yes: Calm Eyes: No: Sclera Icterus Cardiovascular: Yes: Regular Rate and Rhythm Respiratory: Yes: CTA Bilaterally Gastrointestinal Inspection: No: Distention, Scars ...Auscultate: Yes: Normoactive Bowel Sounds ...Palpate: Yes: Soft. No: Hepatomegaly, Splenomegaly, Tenderness ...Percussion: No: Tympanitic ...Rectal Exam: Yes: Other (No external lesions, no masses, light brown stool, no blood/melena) Edema: No (No LE edema) Neurological: Yes: Alert Labs: CBC, BMP 06/02/20 05:43 06/02/20 05:43 INR, PTT INR 1.14 (0.83-1.09) H 06/01/20 21:05 Hepatic Panel Total Bilirubin 1.4 mg/dL (0.2-1) H 06/02/20 05:43 AST 19 U/L (15-37) 06/02/20 05:43 ALT 11 U/L (13-61) L 06/02/20 05:43 Alkaline Phosphatase 87 U/L (45-117) 06/02/20 05:43 Albumin 1.7 g/dl (3.4-5.0) L 06/02/20 05:43 Imaging - Results Cat Scan: Report Reviewed, Image Reviewed Problem List - Problems (1) Colonic mass Assessment/Plan: With microcytic anemia. Discussed with patient. Explained that the findings on CT scan could represent a colon tumor that has been slowly oozing blood leading to her anemia. Discussed colonoscopy to evaluate further. Discussed potential risks of the procedure like but not limited to bleeding, perforation requiring surgery to repair, infection, sedation medication effects all of which could be potentially life threatening. She has declined procedure. I explained that an undiagnosed/ untreated colon cancer could lead to complications as continued bleeding and obstruction of the colon leading to the need for an emergency surgery. She still declined the procedure. I asked that she think about this option and discuss with her family. She stated that she would do so. Monitor H/H Code(s): K63.89 - OTHER SPECIFIED DISEASES OF INTESTINE
[2020-06-02] MEDS ORDERED: CYANOCOBALAMIN PO SCH (10:00)
[2020-06-02] MEDS ORDERED: [UNRECOGNIZED DRUG - OTHER] PO SCH (10:00)
[2020-06-02] MEDS ORDERED: PATIENT'S OWN MEDICATION (NON-FORMULARY) (Omega-3/Dha/Epa/Fish Oil [Fish Oil 1,000 Mg Soft PO SCH (10:00)
[2020-06-02] MEDS: CHOLECALCIFEROL (VIT D3) 1,000 UNIT (25 MCG) TABLET PO SCH (10:14)
[2020-06-02] MEDS: OMEGA-3 ACID ETHYL ESTERS (FATTY-ACIDS) 1 GM CAPSULE (FP) PO SCH (10:14)
[2020-06-02] MEDS: CYANOCOBALAMIN 1,000 MCG TABLET (FP) PO SCH (10:14)
[2020-06-02 12:34] LABS: IRON SERUM 11 ug/dL (50-175); TOTAL IRON BINDING CAPACITY 147 ug/dL (250-450)
--- NOTE | 2020-06-02 13:02 | PN ---
Progress Note (short form) - Note Progress Note: advised by medical attending that patient agreeable to colonoscopy: Prep ordered NPO after midnight except meds Hold heparin infusion @ 5am tomorrow morning Problem List - Problems (1) Colonic mass Code(s): K63.89 - OTHER SPECIFIED DISEASES OF INTESTINE
--- NOTE | 2020-06-02 13:07 | PN ---
Teaching Attending Note Name of Resident: Remy Black ATTENDING PHYSICIAN STATEMENT I saw and evaluated the patient. I reviewed the resident's note and discussed the case with the resident. I agree with the resident's findings and plan as documented. SUBJECTIVE: Seen and examined at bedside. Patient is alert and oriented x3 but appears conf used at times. Left lower extremity tender to palpation. Ultrasound positive for "extensive left-sided DVT." Patient initially refused colonoscopy but after further discussion has agreed to colonoscopy tomorrow. Will place on heparin drip and make n.p.o. overnight. GI notified OBJECTIVE Last Vital Signs Temp Pulse Resp BP Pulse Ox 97.6 F 66 18 165/55 L 100 06/02/20 11:40 06/02/20 11:40 06/02/20 11:40 06/02/20 11:40 06/02/20 11:40 PE: Per resident note Labs/Imaging: reviewed ASSESSMENT/PLAN 89-year-old female past medical history of COPD, lung cancer status post lobectomy, HLD, CAD, hypothyroidism, OA, AAA status post endovascular repair brought in for decreased energy and increased fatigue and found to have hemoglobin of 6.7. Further testing showed probable transverse colonic mass and left lower extremity DVT #Symptomatic iron deficiency anemia/anemia of chronic disease Patient feels much better status post 2 units of blood Repeat hemoglobin 11.1 likely represents overcorrection Venofer 200 mg x 2 days #Irregular thickening of the mid transverse colon suspicious for malignancy GI on board: Appreciate recommendations Patient additionally refused colonoscopy but upon further discussion has agreed Colonoscopy planned for tomorrow N.p.o. overnight Heparin drip to be stopped prior to procedure #Acute left lower extremity DVT In the setting of presumed undiagnosed Heparin drip given planned colonoscopy for tomorrow. Stop at 5AM tomorrow morning prior to procedure #History of hypothyroidism Continue home levothyroxine CAD Continue home atorvastatin
[2020-06-02] MEDS ORDERED: HEPARIN NA (PORCINE) 5,000 UNITS/ML 1ML VIAL IVPUSH PRN ×2 (13:27)
[2020-06-02] MEDS ORDERED: HEPARIN NA (PORCINE) 5,000 UNITS/ML 1ML VIAL IVPUSH ONE (13:27)
--- NOTE | 2020-06-02 14:05 | EKG ---
Test Reason : Blood Pressure : / mmHG Vent. Rate : 084 BPM Atrial Rate : 084 BPM P-R Int : 122 ms QRS Dur : 088 ms QT Int : 426 ms P-R-T Axes : 078 060 064 degrees QTc Int : 503 ms POOR DATA QUALITY, INTERPRETATION MAY BE ADVERSELY AFFECTED NORMAL SINUS RHYTHM NONSPECIFIC T WAVE ABNORMALITY ABNORMAL ECG WHEN COMPARED WITH ECG OF 19-MAR-2020 14:51, NONSPECIFIC T WAVE ABNORMALITY NOW EVIDENT IN LATERAL LEADS QT HAS LENGTHENED Confirmed by JORDAN IVEY MD ([id number]) on 06/02/2020 2:05:15 PM Referred By: Confirmed By:JORDAN IVEY MD
[2020-06-02] MEDS: HEPARIN INFUSION - 25,000 UNITS/500 ML INFUS.BAG IVPB SCH ×2 (14:48→21:16)
[2020-06-02] MEDS ORDERED: BISACODYL 5 MG TABLET.DR (FP) PO ONE (15:00)
--- NOTE | 2020-06-02 15:20 | PN ---
Physical Exam: SUBJECTIVE: Patient seen and examined at bedside in emergency department. Denies chest pain or shortness of breath. OBJECTIVE: Vital Signs Period Temp Pulse Resp BP Sys/Weber Pulse Ox Last 24 Hr 97.6 F-101.5 F 63-88 18-20 122-165/52-75 97-100 GENERAL: NAD. AAOx2 HEAD: Normal with no signs of trauma. EYES: EOMI Sclera Clear NECK: Trachea midline, full range of motion, supple. LUNGS: Clear b/l HEART: RRR S1S2 ABDOMEN: Soft,NDNT EXTREMITIES: Both extremities 2+ pitting edema b/l. LLE more enlarged and severly TTP. NEUROLOGICAL: Cranial nerves II through XII grossly intact. SKIN: Warm, dry, normal turgor, no rashes or lesions noted Laboratory Results - last 24 hr 06/01/20 06/01/20 06/01/20 21:02 21:05 21:05 WBC 11.2 H RBC 2.72 L Hgb 6.7 L* Hct 20.6 L D MCV 75.6 L MCH 24.6 L D MCHC 32.6 RDW 16.2 H Plt Count 295 D MPV 6.8 L D Absolute Neuts (auto) 7.9 Neutrophils % 70.5 Lymphocytes % 15.7 D Monocytes % 11.2 H Eosinophils % 2.0 Basophils % 0.6 Nucleated RBC % 0 Retic Count PT with INR 13.50 H INR 1.14 H PTT (Actin FS) 26.4 VBG pH POC VBG pCO2 POC VBG pO2 VBG HCO3 VBG O2 Sat ([place]) VBG Base Excess Sodium Potassium Chloride Carbon Dioxide Anion Gap BUN Creatinine Est GFR (CKD-EPI)AfAm Est GFR (CKD-EPI)NonAf Random Glucose Lactic Acid Calcium Phosphorus Magnesium Iron TIBC Iron Saturation Unsaturated IBC Total Bilirubin AST ALT Alkaline Phosphatase Creatine Kinase Troponin I Total Protein Albumin TSH Urine Color Yellow Urine Appearance Clear Urine pH 6.5 Ur Specific [place] 1.005 L Urine Protein Negative Urine Glucose (UA) Negative Urine Ketones Negative Urine Blood 1+ H Urine Nitrite Negative Urine Bilirubin Negative Urine Urobilinogen 0.2 Ur Leukocyte Esterase Negative Urine WBC (Auto) 0.7 Urine RBC (Auto) 64.7 Urine Casts (Auto) 0.12 U Epithel Cells (Auto) 5.5 Urine Bacteria (Auto) 273.4 Stool Occult Blood COVID-19 (IDONICIO) Blood Type Antibody Screen Crossmatch 06/01/20 06/01/20 06/01/20 21:05 21:05 21:16 WBC RBC Hgb Hct MCV MCH MCHC RDW Plt Count MPV Absolute Neuts (auto) Neutrophils % Lymphocytes % Monocytes % Eosinophils % Basophils % Nucleated RBC % Retic Count PT with INR INR PTT (Actin FS) VBG pH 7.513 H POC VBG pCO2 33.4 L POC VBG pO2 58.9 H VBG HCO3 26.2 VBG O2 Sat ([place]) 93.1 H VBG Base Excess 3.1 H Sodium 135 L Potassium 3.8 Chloride 100 Carbon Dioxide 27 Anion Gap 7 L BUN 17.4 Creatinine 1.4 H Est GFR (CKD-EPI)AfAm 39.06 Est GFR (CKD-EPI)NonAf 33.70 Random Glucose 108 H Lactic Acid 1.8 Calcium 8.0 L Phosphorus Magnesium 1.8 Iron 11 L TIBC 147 L Iron Saturation 7 L Unsaturated IBC 136 L Total Bilirubin 0.5 AST 13 L ALT 10 L Alkaline Phosphatase 85 Creatine Kinase 48 Troponin I < 0.02 Total Protein 5.0 L Albumin 1.7 L TSH 0.34 L Urine Color Urine Appearance Urine pH Ur Specific [place] Urine Protein Urine Glucose (UA) Urine Ketones Urine Blood Urine Nitrite Urine Bilirubin Urine Urobilinogen Ur Leukocyte Esterase Urine WBC (Auto) Urine RBC (Auto) Urine Casts (Auto) U Epithel Cells (Auto) Urine Bacteria (Auto) Stool Occult Blood COVID-19 (DIONICIO) Blood Type Antibody Screen Crossmatch 06/01/20 06/01/20 06/01/20 21:16 21:24 22:25 WBC RBC Hgb Hct MCV MCH MCHC RDW Plt Count MPV Absolute Neuts (auto) Neutrophils % Lymphocytes % Monocytes % Eosinophils % Basophils % Nucleated RBC % Retic Count PT with INR INR PTT (Actin FS) VBG pH POC VBG pCO2 POC VBG pO2 VBG HCO3 VBG O2 Sat ([place]) VBG Base Excess Sodium Potassium Chloride Carbon Dioxide Anion Gap BUN Creatinine Est GFR (CKD-EPI)AfAm Est GFR (CKD-EPI)NonAf Random Glucose Lactic Acid Calcium Phosphorus Magnesium Iron TIBC Iron Saturation Unsaturated IBC Total Bilirubin AST ALT Alkaline Phosphatase Creatine Kinase Troponin I Total Protein Albumin TSH Urine Color Urine Appearance Urine pH Ur Specific [place] Urine Protein Urine Glucose (UA) Urine Ketones Urine Blood Urine Nitrite Urine Bilirubin Urine Urobilinogen Ur Leukocyte Esterase Urine WBC (Auto) Urine RBC (Auto) Urine Casts (Auto) U Epithel Cells (Auto) Urine Bacteria (Auto) Stool Occult Blood Negative COVID-19 (DIONICIO) Not detected Blood Type O NEGATIVE Antibody Screen Negative Crossmatch See Detail 06/02/20 06/02/20 05:43 05:43 WBC 11.2 H RBC 4.20 Hgb 11.1 Hct 33.7 D MCV 80.1 MCH 26.5 MCHC 33.1 RDW 17.9 H Plt Count 250 MPV 6.7 L Absolute Neuts (auto) 7.2 Neutrophils % 64.1 Lymphocytes % 18.8 Monocytes % 12.8 H Eosinophils % 3.8 D Basophils % 0.5 Nucleated RBC % 0 Retic Count 1.70 H PT with INR INR PTT (Actin FS) VBG pH POC VBG pCO2 POC VBG pO2 VBG HCO3 VBG O2 Sat ([place]) VBG Base Excess Sodium 137 Potassium 3.9 Chloride 106 Carbon Dioxide 25 Anion Gap 6 L BUN 17.2 Creatinine 1.2 Est GFR (CKD-EPI)AfAm 47.06 Est GFR (CKD-EPI)NonAf 40.60 Random Glucose 86 Lactic Acid Calcium 8.3 L Phosphorus 2.8 Magnesium 1.9 Iron TIBC Iron Saturation Unsaturated IBC Total Bilirubin 1.4 H AST 19 ALT 11 L Alkaline Phosphatase 87 Creatine Kinase Troponin I Total Protein 4.7 L Albumin 1.7 L TSH Urine Color Urine Appearance Urine pH Ur Specific [place] Urine Protein Urine Glucose (UA) Urine Ketones Urine Blood Urine Nitrite Urine Bilirubin Urine Urobilinogen Ur Leukocyte Esterase Urine WBC (Auto) Urine RBC (Auto) Urine Casts (Auto) U Epithel Cells (Auto) Urine Bacteria (Auto) Stool Occult Blood COVID-19 (DIONICIO) Blood Type Antibody Screen Crossmatch Active Medications Generic Name Dose Route Start Last Admin Trade Name Freq PRN Reason Stop Dose Admin Atorvastatin Calcium 10 mg 06/02/20 22:00 Lipitor - PO HS TAD Cholecalciferol 1,000 unit 06/02/20 10:00 06/02/20 10:14 Vitamin D3 - PO 1,000 unit DAILY TAD Administration Cyanocobalamin 1,000 mcg 06/02/20 10:00 06/02/20 10:14 Vitamin B12 - PO 1,000 mcg DAILY TAD Administration Heparin Sodium (Porcine) 1,700 unit 06/02/20 13:27 Heparin - 40 unit/kg (1700 unit) IVPUSH PRN PRN For aPTT 35 to 45 seconds Heparin Sodium (Porcine) 3,400 unit 06/02/20 13:27 Heparin - 80 unit/kg (3400 unit) IVPUSH PRN PRN aPTT <35 seconds Heparin Sodium/Dextrose 25,000 units in 500 mls @ 15.513 mls/hr 06/02/20 13:30 06/02/20 14:48 Heparin Infusion - IVPB 18 units/kg/hr TITR TAD 15.513 mls/hr Administration Protocol 18 UNITS/KG/HR Levothyroxine Sodium 75 mcg 06/02/20 07:00 06/02/20 07:48 Synthroid - PO 75 mcg DAILY@0700 TAD Administration [id number] Ethyl Esters 1 gm 06/02/20 10:00 06/02/20 10:14 Lovaza - PO 1 gm DAILY TAD Administration Polyethylene Glycol 255 gm 06/02/20 16:00 Miralax (For Bowel Prep) - PO 06/02/20 16:01 ONCE ONE ASSESSMENT/PLAN: 89-year-old female past medical history of COPD, lung cancer status post lobectomy, HLD, CAD, hypothyroidism, OA, AAA status post endovascular repair brought in for decreased energy and increased fatigue and found to have hemoglobin of 6.7. Further testing showed probable transverse colonic mass and left lower extremity DVT # iron deficiency anemia/AOCD - status post 2 units of blood Repeat hemoglobin 11.1 Venofer 200 mg x 2 days -FOBT Negative #Irregular thickening of the mid transverse colon suspicious for malignancy GI on board: recs appreciated. Will scope patient tomorrow morning. Will keep pt NPO and administer bowel prep. Heparin drip to be stopped prior to procedure #Acute left lower extremity DVT In the setting of presumed undiagnosed Heparin drip given planned colonoscopy for tomorrow. Stop at 5AM tomorrow morning prior to procedure #History of hypothyroidism Continue home levothyroxine CAD Continue home atorvastatin #FEN No Fluids Monitor Electrolytes NPO #DVT ppx: Hep gtt in light of DVT #Dispo Med Surg Visit type - Emergency Visit Emergency Visit: Yes ED Registration Date: 06/01/20 Care time: The patient presented to the Emergency Department on the above date and was hospitalized for further evaluation of their emergent condition. - New Patient This patient is new to me today: Yes Date on this admission: 06/02/20 - Critical Care Critical Care patient: No - Discharge Referral Referred to [facility] No - Medication Review Med list reviewed for High Risk Meds patients 65 and older: Yes ATTENDING PHYSICIAN STATEMENT I saw and evaluated the patient. I reviewed the resident's note and discussed the case with the resident. I agree with the resident's findings and plan as documented. SUBJECTIVE: OBJECTIVE: ASSESSMENT AND PLAN:
[2020-06-02] MEDS ORDERED: POLYETHYLENE GLYCOL 3350 255 GM BTL PO ONE (16:00)
[2020-06-02] MEDS ORDERED: FAMOTIDINE 20 MG/50 ML IVPB 20 MG/50 ML MG IVPB ONE (20:02)
[2020-06-02] MEDS ORDERED: ATORVASTATIN CA 10 MG TABLET (FP) PO SCH (22:00)
[2020-06-03] MEDS: LEVOTHYROXINE NA 75 MCG TABLET (FP) PO SCH (06:12)
[2020-06-03 07:15] LABS: BASO % 0.5 % (0-2.0); EOS % 3.9 % (0-4.5); HEMATOCRIT 37.8 % (32.4-45.2); HEMOGLOBIN 12.4 GM/dL (10.7-15.3); LYMPH % 18.2 % (8-40); MCH 26.1 pg (25.7-33.7); MCHC 32.8 g/dl (32.0-36.0); MEAN CELL VOLUME 79.6 fl (80-96); MEAN PLT VOLUME 6.6 fl (7.5-11.1); MONO % 9.9 % (3.8-10.2); NEUT % 67.5 % (42.8-82.8); PLATELET COUNT 323 K/MM3 (134-434); RBC 4.75 M/mm3 (3.60-5.2); RDW 17.4 % (11.6-15.6); WHITE BLOOD COUNT 11.9 K/mm3 (4.0-10.0)
[2020-06-03 07:43] LABS: BLOOD UREA NITROGEN 18.8 mg/dL (7-18); CALCIUM 8.7 mg/dL (8.5-10.1); CREATININE 1.3 mg/dL (0.55-1.3); MAGNESIUM 2.1 mg/dL (1.8-2.4); PHOSPHOROUS 3.4 mg/dL (2.5-4.9); POTASSIUM 3.6 mmol/L (3.5-5.1)
[2020-06-03] MEDS: CYANOCOBALAMIN 1,000 MCG TABLET (FP) PO SCH (10:09)
[2020-06-03] MEDS: CHOLECALCIFEROL (VIT D3) 1,000 UNIT (25 MCG) TABLET PO SCH (10:10)
[2020-06-03] MEDS: OMEGA-3 ACID ETHYL ESTERS (FATTY-ACIDS) 1 GM CAPSULE (FP) PO SCH (10:32)
--- NOTE | 2020-06-03 11:46 | PN.GI ---
GI Progress Note Subjective: Pt was brought down to the endoscopy suite for a Colonscopy. Findings showed a circumferential mass of the mid transverse colon. The scope could not pass through this point of partial obstruction. Biopsies were taken. Ashley ink injections at three points of the lumen, just beyond the distal margins of the neoplasm. Cold snare polypectomy at the descending colon performed. Polypectomy of a rectal polyp performed. Findings discussed with the patient's daughter(Genia). Given the obstruction, Surgical consultation was advised. Likely, will need medical optimization with cardiology, pulmonary, oncology consultation. - Objective Vital Signs: Vital Signs Temperature 98.3 F 06/03/20 09:00 Pulse Rate 82 06/03/20 09:00 Respiratory Rate 20 06/03/20 09:00 Blood Pressure 144/66 06/03/20 09:00 O2 Sat by Pulse Oximetry (%) 98 06/03/20 09:00 Constitutional: Cachectic Gastrointestinal Inspection: Yes: WNL, Other (active bowel sounds. Non). No: Distention ...Auscultate: Yes: Normoactive Bowel Sounds ...Palpate: Yes: Soft, Other (nontender abdominal of all 4quadrants). No: Tenderness ...Rectal Exam: Yes: Hemorrhoids/Internal (small), Other (healing sacral decubitus ulcer) Labs: CBC, BMP 06/03/20 06:33 06/03/20 06:33 INR, PTT INR 1.14 (0.83-1.09) H 06/01/20 21:05 Assessment/Plan IMPRESSION: - near completely obstructing neoplasm of mid-transverse colon, most consistent with adenocarcinoma - colon and rectal polyps PLAN: - full liquid diet - continue holding anticogulation for 24hs, post-polypectomy - recommend consulting Surgery(palliative if not curative), Oncology, and medical optimization via Pulmonary, Cardiology consultations -discussed results with the patient, her daughter(Genia) and Resident(Remy Black) and advised surgery Problem List - Problems (1) Colon neoplasm Code(s): D49.0 - NEOPLASM OF UNSPECIFIED BEHAVIOR OF DIGESTIVE SYSTEM (2) Colon polyp Code(s): K63.5 - POLYP OF COLON (3) Hypoalbuminemia due to protein-calorie malnutrition Code(s): E88.09 - OTH DISORDERS OF PLASMA-PROTEIN METABOLISM, NEC; E46 - UNSPECIFIED PROTEIN-CALORIE MALNUTRITION (4) COPD (chronic obstructive pulmonary disease) Code(s): J44.9 - CHRONIC OBSTRUCTIVE PULMONARY DISEASE, UNSPECIFIED (5) History of lung cancer Code(s): Z85.118 - PERSONAL HISTORY OF MALIGNANT NEOPLASM OF BRONCHUS AND LUNG (6) History of lobectomy of lung Code(s): Z90.2 - ACQUIRED ABSENCE OF LUNG [PART OF] (7) HLD (hyperlipidemia) Code(s): E78.5 - HYPERLIPIDEMIA, UNSPECIFIED (8) CAD (coronary artery disease) Code(s): I25.10 - ATHSCL HEART DISEASE OF [place] CORONARY ARTERY W/O ANG PCTRS (9) Hypothyroidism Code(s): E03.9 - HYPOTHYROIDISM, UNSPECIFIED (10) History of endovascular stent graft for abdominal aortic aneurysm (AAA) Code(s): Z95.828 - PRESENCE OF OTHER VASCULAR IMPLANTS AND GRAFTS (11) Microcytic anemia Code(s): D50.9 - IRON DEFICIENCY ANEMIA, UNSPECIFIED (12) Chronic blood loss anemia Code(s): D50.0 - IRON DEFICIENCY ANEMIA SECONDARY TO BLOOD LOSS (CHRONIC)
[2020-06-03] MEDS ORDERED: IRON SUCROSE INJECTION 200 MG in SODIUM CHLORIDE 90 ML IVPB ONE (12:30)
--- NOTE | 2020-06-03 14:38 | PN ---
Teaching Attending Note Name of Resident: Remy Black ATTENDING PHYSICIAN STATEMENT I saw and evaluated the patient. I reviewed the resident's note and discussed the case with the resident. I agree with the resident's findings and plan as documented. SUBJECTIVE: During colonoscopy patient found to have a nearly completely obstructing colonic mass suggestive of adenocarcinoma. Dr. mendez from surgery consulted. Pending decision by surgery regarding management. OBJECTIVE Last Vital Signs Temp Pulse Resp BP Pulse Ox 97.9 F 79 18 106/57 L 100 06/03/20 13:19 06/03/20 13:19 06/03/20 13:19 06/03/20 13:19 06/03/20 13:19 PE: Per resident note Labs/Imaging: reviewed ASSESSMENT/PLAN 89-year-old female past medical history of COPD, lung cancer status post lobectomy, HLD, CAD, hypothyroidism, OA, AAA status post endovascular repair brought in for decreased energy and increased fatigue and found to have hemoglobin of 6.7. Further testing showed probable transverse colonic mass and left lower extremity DVT #Irregular thickening of the mid transverse colon suspicious for malignancy Cscope showed partially obstructing mass significant for likely adenocarcinoma Patient additionally refused colonoscopy but upon further discussion has agreed -pending surgical decision as to whether to manage pt here or transfer to tertiary care center. -pt would require, cardiology, pulm clearance prior to surgery unless considered emergent #Symptomatic iron deficiency anemia/anemia of chronic disease Patient feels much better status post 2 units of blood Venofer 200 mg x 2 days #Acute left lower extremity DVT In the setting of presumed undiagnosed holding heparin drip for 24 hours post cscope. Will need to be restarted pending surgical plan #History of hypothyroidism Continue home levothyroxine CAD Continue home atorvastatin
--- NOTE | 2020-06-03 16:11 | PN ---
Progress Note (short form) - Note Progress Note: SURGERY 89 y.o. F PMHx COPD, lung ca s/p lobectomy, HLD, CAD, hypothyroidism, OA and AAA s/p endovascular w/ b/l iliac angiography, was admitted for colon mass and GI bleed. Pt was scoped and found to have near obstructing colon mass. Surgery was consulted for evaluation. Upon reviewing pt history and discussing with Dr. Cross attending surgery patron attendant it is felt that pt should be treated at a Tertiary center due to advance age, h/o lobectomy, and Endovascular repair of AAA.
--- NOTE | 2020-06-03 16:19 | PN ---
Physical Exam: SUBJECTIVE: Patient seen and examined OBJECTIVE: Vital Signs Period Temp Pulse Resp BP Sys/Weber Pulse Ox Last 24 Hr 97.9 F-99 F 71-82 16-20 101-156/51-77 97-100 GENERAL: The patient is awake, alert, and fully oriented, in no acute distress. HEAD: Normal with no signs of trauma. EYES: PERRL, extraocular movements intact, sclera anicteric, conjunctiva clear. No ptosis. ENT: Ears normal, nares patent, oropharynx clear without exudates, moist mucous membranes. NECK: Trachea midline, full range of motion, supple. LUNGS: Breath sounds equal, clear to auscultation bilaterally, no wheezes, no crackles, no accessory muscle use. HEART: Regular rate and rhythm, S1, S2 without murmur, rub or gallop. ABDOMEN: Soft, nontender, nondistended, normoactive bowel sounds, no guarding, no rebound, no hepatosplenomegaly, no masses. EXTREMITIES: 2+ pulses, warm, well-perfused, no edema. NEUROLOGICAL: Cranial nerves II through XII grossly intact. Normal speech, gait not observed. PSYCH: Normal mood, normal affect. SKIN: Warm, dry, normal turgor, no rashes or lesions noted Laboratory Results - last 24 hr 06/03/20 06/03/20 06/03/20 02:00 06:33 06:33 WBC 11.9 H RBC 4.75 Hgb 12.4 Hct 37.8 MCV 79.6 L MCH 26.1 MCHC 32.8 RDW 17.4 H Plt Count 323 D MPV 6.6 L Absolute Neuts (auto) 8.0 Neutrophils % 67.5 Lymphocytes % 18.2 Monocytes % 9.9 Eosinophils % 3.9 Basophils % 0.5 Nucleated RBC % 0 PTT (Actin FS) Sodium 139 Potassium 3.6 Chloride 104 Carbon Dioxide 28 Anion Gap 6 L BUN 18.8 H Creatinine 1.3 Est GFR (CKD-EPI)AfAm 42.72 Est GFR (CKD-EPI)NonAf 36.86 Random Glucose 67 L Calcium 8.7 Phosphorus 3.4 Magnesium 2.1 Stool Occult Blood Positive 06/03/20 06:33 WBC RBC Hgb Hct MCV MCH MCHC RDW Plt Count MPV Absolute Neuts (auto) Neutrophils % Lymphocytes % Monocytes % Eosinophils % Basophils % Nucleated RBC % PTT (Actin FS) 40.8 H Sodium Potassium Chloride Carbon Dioxide Anion Gap BUN Creatinine Est GFR (CKD-EPI)AfAm Est GFR (CKD-EPI)NonAf Random Glucose Calcium Phosphorus Magnesium Stool Occult Blood Active Medications Generic Name Dose Route Start Last Admin Trade Name Freq PRN Reason Stop Dose Admin Atorvastatin Calcium 10 mg 06/02/20 22:00 06/02/20 21:27 Lipitor - PO 10 mg HS TAD Administration Cholecalciferol 1,000 unit 06/02/20 10:00 06/03/20 10:10 Vitamin D3 - PO Not Given DAILY TAD Cyanocobalamin 1,000 mcg 06/02/20 10:00 06/03/20 10:09 Vitamin B12 - PO Not Given DAILY TAD Heparin Sodium (Porcine) 1,700 unit 06/02/20 13:27 Heparin - 40 unit/kg (1700 unit) IVPUSH PRN PRN For aPTT 35 to 45 seconds Heparin Sodium (Porcine) 3,400 unit 06/02/20 13:27 Heparin - 80 unit/kg (3400 unit) IVPUSH PRN PRN aPTT <35 seconds Heparin Sodium/Dextrose 25,000 units in 500 mls @ 15.513 mls/hr 06/02/20 13:30 06/02/20 21:16 Heparin Infusion - IVPB 18 units/kg/hr TITR TAD 15.513 mls/hr Administration Protocol 18 UNITS/KG/HR Levothyroxine Sodium 75 mcg 06/02/20 07:00 06/03/20 06:12 Synthroid - PO 75 mcg DAILY@0700 TAD Administration [id number]-[id number] Ethyl Esters 1 gm 06/02/20 10:00 06/03/20 10:32 Lovaza - PO Not Given DAILY TAD ASSESSMENT/PLAN: ATTENDING PHYSICIAN STATEMENT I saw and evaluated the patient. I reviewed the resident's note and discussed the case with the resident. I agree with the resident's findings and plan as documented. SUBJECTIVE: OBJECTIVE: ASSESSMENT AND PLAN:
[2020-06-03] MEDS ORDERED: ALPRAZolam 0.25 MG TABLET PO PRN (16:24)
--- NOTE | 2020-06-03 18:27 | DS ---
Physical Exam: SUBJECTIVE: Patient seen and examined at bedside. Status post colonoscopy. Patient transferred to [facility] per surgery recommendation. OBJECTIVE: Vital Signs Period Temp Pulse Resp BP Sys/Ewber Pulse Ox Last 24 Hr 97.9 F-99 F 71-82 16-20 101-156/51-77 97-100 PHYSICAL EXAM GENERAL: No acute distress. AAOx2 HEAD: AT/NC EYES: EOMI Sclera Clear LUNGS: Clear b/l. No wheezing rales or rhonchi HEART: RRR S1S2 ABDOMEN: Soft, NDNT. BS + EXTREMITIES: Left lower extremity is more enlarged and very tender to palpation. Also 2+ pitting edema bilaterally. NEUROLOGICAL: Cranial nerves II through XII grossly intact. LABS Laboratory Results - last 24 hr 06/03/20 06/03/20 06/03/20 02:00 06:33 06:33 WBC 11.9 H RBC 4.75 Hgb 12.4 Hct 37.8 MCV 79.6 L MCH 26.1 MCHC 32.8 RDW 17.4 H Plt Count 323 D MPV 6.6 L Absolute Neuts (auto) 8.0 Neutrophils % 67.5 Lymphocytes % 18.2 Monocytes % 9.9 Eosinophils % 3.9 Basophils % 0.5 Nucleated RBC % 0 PTT (Actin FS) Sodium 139 Potassium 3.6 Chloride 104 Carbon Dioxide 28 Anion Gap 6 L BUN 18.8 H Creatinine 1.3 Est GFR (CKD-EPI)AfAm 42.72 Est GFR (CKD-EPI)NonAf 36.86 Random Glucose 67 L Calcium 8.7 Phosphorus 3.4 Magnesium 2.1 Stool Occult Blood Positive 06/03/20 06:33 WBC RBC Hgb Hct MCV MCH MCHC RDW Plt Count MPV Absolute Neuts (auto) Neutrophils % Lymphocytes % Monocytes % Eosinophils % Basophils % Nucleated RBC % PTT (Actin FS) 40.8 H Sodium Potassium Chloride Carbon Dioxide Anion Gap BUN Creatinine Est GFR (CKD-EPI)AfAm Est GFR (CKD-EPI)NonAf Random Glucose Calcium Phosphorus Magnesium Stool Occult Blood HOSPITAL COURSE: Date of Admission:06/01/20 Patient is an 89-year-old female with a significant past medical history of COPD, lung cancer status post lobectomy, HLD, CAD, hypothyroidism, OA, AAA status post endovascular repair brought in for decreased energy and increased fatigue and found to have hemoglobin of 6.7. Patient was transfused 2 U PRBCs. CTAP was performed which revealed irregular thickening of the mid transverse colon suspicious for malignancy. Patient also c/o LLE pain. Duplex ultrasound was performed which found the patient to have an acute left lower extremity DVT; patient was subsequently placed on a heparin drip. Furthermore, colonoscopy was subsequently performed which revealed " near completely obstructing neoplasm of mid-transverse colon, most consistent with adenocarcinoma." Polyps were also removed from the descending colon and rectum; biopsies were taken as well. Surgery was consulted and advised to transfer the patient to a tertiary care facility in light of her extensive past medical history. Heparin drip was held prior to colonoscopy and was advised to be resumed in 24 hours after the procedure (this was relayed to accepting RN at [facility] by Kely POLO). Date of Discharge: 06/03/20 Minutes to complete discharge: 35 Discharge Summary Problems reviewed: Yes Reason For Visit: ANEMIA Current Active Problems Anemia (Acute) CAD (coronary artery disease) (Acute) COPD (chronic obstructive pulmonary disease) (Acute) Chronic blood loss anemia (Acute) Colon neoplasm (Acute) Colon polyp (Acute) Colonic mass (Acute) HLD (hyperlipidemia) (Acute) History of endovascular stent graft for abdominal aortic aneurysm (AAA) (Acute) History of lobectomy of lung (Acute) History of lung cancer (Acute) Hypoalbuminemia due to protein-calorie malnutrition (Acute) Hypothyroidism (Acute) Microcytic anemia (Acute) Condition: Fair - Instructions Disposition: TRANSFER ACUTE CARE/OTHER HOSP - Home Medications Comprehensive Discharge Medication List: Ambulatory Orders Alprazolam [Xanax] 0.25 mg PO Q6H PRN 10/02/16 Atorvastatin Ca [Lipitor] 10 mg PO DAILY 10/02/16 Cholecalciferol (Vitamin D3) [Vitamin D3] 1,000 unit PO DAILY 10/02/16 Cranberry Fruit Extract [Cranberry] 125 mg PO DAILY 10/02/16 Cyanocobalamin (Vitamin B-12) [Vitamin B12] 1,000 mcg PO DAILY 10/02/16 [place]-3/Dha/Epa/Fish Oil [Fish Oil 1,000 mg Softgel] 1,000 mg PO DAILY 10/02/16 Acetaminophen [Tylenol .Regular Strength -] 650 mg PO Q4H PRN #0 tablet 10/05/16 Levothyroxine [Synthroid -] 75 mcg PO DAILY@0700 tablet 10/05/16 This patient is new to me today: No Emergency Visit: Yes ED Registration Date: 06/01/20 Care time: The patient presented to the Emergency Department on the above date and was hospitalized for further evaluation of their emergent condition. Critical Care patient: No - Discharge Referral Referred to [facility] Med P.C.: No ATTENDING PHYSICIAN STATEMENT I saw and evaluated the patient. I reviewed the resident's note and discussed the case with the resident. I agree with the resident's findings and plan as documented. SUBJECTIVE: OBJECTIVE: ASSESSMENT AND PLAN:
[2020-06-03 19:53] VITALS: BP 130/63; PULSE 84; TEMP 98.4
--- NOTE | 2020-06-06 13:11 | PATH ---
Surgical Pathology Report Patient Name: ROBIN JAY Med. Rec. #: [id number] /Age/Gender: 1930 (Age: 89) / F Account: [id number] Location: [facility] MED/SURG Taken: 06/03/2020 Received: 06/03/2020 Reported: 06/06/2020 Physicians: Sky Amaral M.D. Specimen(s) Received A: MID TRANSVERSE COLON NEOPLASM B: DESCENDING COLON POLYP C: RECTAL POLYP Clinical History Anemia, abnormal CT scan Postoperative diagnosis: Neoplasm transverse colon, descending colon, rectal polyp Final Diagnosis A. MID TRANSVERSE COLON, NEOPLASM, BIOPSY: ADENOCARCINOMA, MODERATELY DIFFERENTIATED, WITH ASSOCIATED ULCERATION. SEE COMMENT. B. DESCENDING COLON, POLYP, POLYPECTOMY: HYPERPLASTIC POLYP. C. RECTAL POLYP, BIOPSY: COLONIC MUCOSA WITH MILD SUPERFICIAL HYPERPLASTIC FEATURES. Comment: Findings discussed with Dr. Borden, 06/06/2020. Additional studies for Mismatch repair proteins (MMR) are pending and will be reported as an addendum. Electronically Signed Kassidy Cervantes M.D. 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 Additional molecular studies for BRAF pending, findings will be reported separately. Kassidy Cervantes M.D. 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 Comment: Tumor is sporadic and germline evaluation is probably not indicated. See Emerge report for details. Kassidy Cervantes M.D. Gross Description A. Received in formalin, labeled "biopsy mid transverse colon neoplasm" are 5 mckeon, irregular portions of soft tissue ranging from 0.2-0.5 cm. in greatest dimension. The specimens are submitted in toto in one cassette. B. Received in formalin, labeled "descending colon polyp" are 3 mckeon, irregular portions of soft tissue ranging from 0.2-0.7 cm. in greatest dimension. The specimens are submitted in toto in one cassette. C. Received in formalin, labeled "biopsy rectal polyp" are 2 mckeon, irregular portions of soft tissue averaging 0.2 cm. in greatest dimension. The specimens are submitted in toto in one cassette. 06/03/2020 saudi06/03/2020
== END 2020-06-03 20:00 | disposition short-term general hospital (02) | DRG 375 ==
LOC: JER 19:53 → JERBED 23:38 → J7W 06-02 20:02
PROVIDERS: ADMIT Hospitalist; ATTEND Internal Medicine
PROC: 30233N1 Transfusion of Nonautologous Red Blood Cells into Peripheral Vein, Percutaneous Approach (ICD-10-PCS; 2020-06-01)
PROC: 0DBM8ZX Excision of Descending Colon, Via Natural or Artificial Opening Endoscopic, Diagnostic (ICD-10-PCS; 2020-06-03)
PROC: 0DBP8ZX Excision of Rectum, Via Natural or Artificial Opening Endoscopic, Diagnostic (ICD-10-PCS; 2020-06-03)
PROC: 0DBL8ZX Excision of Transverse Colon, Via Natural or Artificial Opening Endoscopic, Diagnostic (ICD-10-PCS; principal; 2020-06-03 10:00)
DX: C18.9 Malignant neoplasm of colon, unspecified (principal); R64 Cachexia; I82.402 Acute embolism and thrombosis of unspecified deep veins of left lower extremity; E46 Unspecified protein-calorie malnutrition; D50.0 Iron deficiency anemia secondary to blood loss (chronic); E88.09 Other disorders of plasma-protein metabolism, not elsewhere classified; I25.10 Atherosclerotic heart disease of native coronary artery without angina pectoris; E03.9 Hypothyroidism, unspecified; E78.5 Hyperlipidemia, unspecified; K57.30 Diverticulosis of large intestine without perforation or abscess without bleeding; K62.1 Rectal polyp
CPT/HCPCS: 36415; 36430; 71045-TC-FY; 74176-TC; 80048; 80053; 81003; 82272; 82550; 82803; 83540; 83550; 83605; 83735; 84100; 84443; 84484; 85025; 85045; 85610; 85730; 86850; 86900; 86901; 86922; 87040; 87086; 87186; 88305-TC; 93005; 93010; 93970-TC; 99285-25; J0131; J1644; J1756; P9058; U0003